=== PATIENT | female | born 1985 | race Caucasian/White ===

== ENCOUNTER 2021-12-25 09:52 | Outpatient (CLI) | payer OTHER, SELFPAY ==
[2021-12-26 13:38] LABS: Strep B DNA Probe POSITIVE (Negative)
== END 2021-12-25 09:53 | disposition home or self-care (01) ==
PROVIDERS: Visit Provider Advanced Practice Midwife
DX: Z34.93 Encounter for supervision of normal pregnancy, unspecified, third trimester (principal); Z3A.36 36 weeks gestation of pregnancy
CPT/HCPCS: 84443; 87081; 87653

== ENCOUNTER 2022-01-15 16:59 | Inpatient (IN) | payer OTHER, SELFPAY ==
[2022-01-15] VITALS (9 sets, daily range): BP systolic 114–134; BP diastolic 74–83; PULSE 18–92; TEMP 36.6; O2SAT 98; BMI 25.0
--- OUTSIDE RECORDS SUMMARY | 2022-01-15 16:40 | XMS_ITS | Clinical Summary ---
:1985 Author Organization [facility] Address [address] [place] [id number] Care Team Providers Name Role Phone Unavailable Primary Care Provider Unavailable Source Comments Patient records contain information from all sites at [facility]. For routine questions regarding patient records, call [phone] during business hours, M-F 8:00 AM - 5:00 PM Central Time. Record requests for emergency care only can be directed to [phone] at any time.[facility] Allergies No known active allergies Medications Medication Sig Dispensed Refills Start Date End Date Status buPROPion XL Take 150 mg by 0 Ac tive (WELLBUTRIN XL) 150 mg mouth. 24 hr tablet clobetasoL (TEMOVATE) Apply topically. 0 Active 0.05 % cream Active Problems No known active problems Immunizations Name Administration Dates Next Due Td (Adult), adsorbed 11/29/2008 Tdap 02/16/2020 Family History Medical History Relation Name Comments Asthma Father Diabetes Father Anxiety disorder Sister Asthma Sister Relation Name Status Comments Father Sister Social History Tobacco Use Types Packs/Day Years Used Date Smoking Tobacco: Never Sex Assigned at Date Recorded Not on file Last Filed Vital Signs Vital Sign Reading Time Taken Comments Blood Pressure 113/82 02/16/2020 6:30 PM CDT Pulse 125 02/16/2020 6:30 PM CDT Temperature 37.1 ??C (98.8 ??F) 02/16/2020 4:18 PM CDT Respiratory Rate 12 02/16/2020 5:35 PM CDT Oxygen Saturation 99% 02/16/2020 6:30 PM CDT Inhaled Oxygen Concentration - - Weight 56.2 kg (124 lb) 02/16/2020 4:51 PM CDT Height 162.6 cm (5' 4) 02/16/2020 4:51 PM CDT Body Mass Index 21.28 02/16/2020 4:51 PM CDT Plan of Treatment Health Maintenance Due Date Last Done Comments HIV Screening 1985 Hepatitis B Vaccines (1 of 3 1984 - 3-dose series) Hepatitis C Screening 1985 COVID-19 Vaccine (#1) 04/14/1985 Cervical Cancer Screening 12/24/2014 12/25/2011 Fasting Lipid Panel 08/24/2017 08/24/2012 Depression Screening (Annual 05/31/2021 PHQ-2) Influenza Vaccine (#1) 2022 DTaP,Tdap,and Td Vaccines (3 02/15/2030 02/16/2020, - Td or Tdap) 07/03/2014, 11/29/2008 Pneumococcal vaccine (0-64 Aged Out No lo nger eligible based years) on patient's age to complete this to [facility] Insurance Payer Benefit Plan / Subscriber ID Effective Phone Address T ype Group Dates PROGRESSIVE PROGRESSIVE [id number] 2020-Pr [phone] [address] emnity esent [id number] [place] [address] [facility] [id number] 2019-Pr [id number] Medicaid HMO HEALTH [place] CARE esent [address] [place] [address] [phone] [id number] (Home) [place] [address] Elaine Chen Third Libertarian Self 1985 [phone] [id number] (Home) [place] [address]
--- OUTSIDE RECORDS SUMMARY | 2022-01-15 16:40 | XMS_ITS | Encounter Summary ---
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 re-evaluation of patient's condi tion, ordering and review of radiographic studies, ordering and revie w of laboratory studies and ordering and performing treatments and i nterventions Williams LorenzoA.-C. PROCEDURE/MINOR SURGICAL OR DERABLES DX Hand Right 3 Views (02/16/2020 5:47 PM CDT) Anatomical Region Laterality Modality Upper Extremity, Hand, Musculoskeletal RST LOS, Right Digital Radiography Musculoskeletal ARZ LOS, Muskuloskeletal FLA LOS Specimen (Source) Anatomical Collection Method Collection Time Re ceived Time Location / / Volume Laterality 02/16/2020 6:06 PM CDT Impressions 02/16/2020 6:08 PM CDT No acute fractures are seen. No opaque foreign bodies are identified. COMPARISON: None. FINDINGS: No acute abnormalities are briana ntified in the right hand. No opaque foreign bodies are seen. No fractures or dislocations are identified. Narrative 02/16/2020 6:08 PM CDT EXAM: DX HAND RIGHT 3 VIEWS Procedure Note oPli Del Angel M.D. - 02/16/2020Format ting of this note might be different from the original. EXAM: DX HAND RIGHT 3 VIEWS IMPRESSION: No acute fractures are seen. No opaque f oreign bodies are identified. COMPARISON: None. FINDINGS: No acute abnormalities are briana ntified in the right hand. No opaque foreign bodies are seen. No fractures or dislocations are identified. Williams Deutsch P.A.-C. IMG DIAGNOSTIC IMAGING PROC EDURES CT Maxillofacial without IV Contrast (02/16/2020 5:20 PM CDT) Anatomical Region Laterality Modality Jaw, Head, Neuroradiology RST LOS, Neuroradiology ARZ N/A Computed Tomography [facility], Neuroradiology [facility] Specimen (Source) Anatomical Collection Method Collection Time Re ceived Time Location / / Volume Laterality 02/16/2020 5:31 PM CDT Impressions 02/16/2020 5:34 PM CDT 1. Displaced nasal fractures. 2. Right periorbital and right facial so ft tissue swelling. Narrative 02/16/2020 5:34 PM CDT EXAM: CT MAXILLOFACIAL WITHOUT IV CONTRAST COMPARISON: None FINDINGS: There are fractures of the jun al bones. There is right periorbital soft tissue swelling and right facial so ft tissue swelling. The paranasal sinuses are within normal limits. No acu te intracranial abnormality is seen. Visualized cervical airway appears junior l. The temporal bones appear normal. Mastoid air cells are well aerated bilat erally. Procedure Note Poli Del Angel M.D. - 02/16/2020Format ting of this note might be different from the original. EXAM: CT MAXILLOFACIAL WITHOUT IV CONTRA ST COMPARISON: None FINDINGS: There are fractures of the jun al bones. There is right periorbital soft tissue swelling and right facial so ft tissue swelling. The paranasal sinuses are within normal limits. No acu te intracranial abnormality is seen. Visualized cervical airway appears junior l. The temporal bones appear normal. Mastoid air cells are well aerated bilat erally. IMPRESSION: 1. Displaced nasal fractures. 2. Right periorbital and right facial so ft tissue swelling. Williams LorenzoARed-Edd. IMG CT PROCEDURES CT Cervical Spine without IV Contrast (02/16/2020 5:19 PM CDT) Anatomical Region Laterality Modality Cervical Spine, Neuroradiology RST [facility], Neuroradiology N/A Computed Tomography ARZ [facility], Neuroradiology [facility] Specimen (Source) Anatomical Collection Method Collection Time Re ceived Time Location / / Volume Laterality 02/16/2020 5:28 PM CDT Impressions 02/16/2020 5:29 PM CDT Normal cervical spine. Narrative 02/16/2020 5:29 PM CDT EXAM: CT CERVICAL SPINE WITHOUT IV CONTRAST COMPARISON: None FINDINGS: The cervical spine is normal. No fractures are seen. There is normal mineralization and alignment. Disc space heights are preserved. No prevertebral swelling is seen. No acute soft tissue a bnormalities are identified. Procedure Note Poli Del Angel M.D. - 02/16/2020Format ting of this note might be different from the original. EXAM: CT CERVICAL SPINE WITHOUT IV CONTR AST COMPARISON: None FINDINGS: The cervical spine is normal. No fractures are seen. There is normal mineralization and alignment. Disc space heights are preserved. No prevertebral swelling is seen. No acute soft tissue a bnormalities are identified. IMPRESSION: Normal cervical spine. Williams E Debbi Steeg P.A.-C. IMG CT PROCEDURES CT Head without IV Contrast (02/16/2020 5:19 PM CDT) Anatomical Region Laterality Modality Head, Neuroradiology RST LOS, Neuroradiology ARZ LOS, N/A Computed Tomography Neuroradiology FLA [facility] Specimen (Source) Anatomical Collection Method Collection Time Re ceived Time Location / / Volume Laterality 02/16/2020 5:24 PM CDT Impressions 02/16/2020 5:28 PM CDT 1. No acute intracranial hemorrhage. 2. Bilateral nasal fractures. 3. Right periorbital and right facial so ft tissue swelling. Narrative 02/16/2020 5:28 PM CDT EXAM: CT HEAD WITHOUT IV CONTRAST COMPARISON: None FINDINGS: No acute intracranial hemorrha ge or mass effect. No abnormalities of brain parenchymal density are identified . There are bilateral nasal fractures. There is right periorbital and right fac ial soft tissue swelling. The paranasal sinuses are within normal limits. Procedure Note Poli Del Angel M.D. - 02/16/2020Format ting of this note might be different from the original. EXAM: CT HEAD WITHOUT IV CONTRAST COMPARISON: None FINDINGS: No acute intracranial hemorrha ge or mass effect. No abnormalities of brain parenchymal density are identified . There are bilateral nasal fractures. There is right periorbital and right fac ial soft tissue swelling. The paranasal sinuses are within normal limits. IMPRESSION: 1. No acute intracranial hemorrhage. 2. Bilateral nasal fractures. 3. Right periorbital and right facial so ft tissue swelling. Williams E Debbi Steeg P.A.-C. IMG CT PROCEDURES (ABNORMAL) Lipase (02/16/2020 4:27 PM CDT) athologist Signature Lipase, P 75 (H) 13 - 60 U/L 02/16/2020 CN[facility] 4:49 PM CDT Specimen Anatomical Collection Method Collection Time Receive d Time (Source) Location / / Volume Laterality Blood (Blood, 02/16/2020 4:27 PM 02/16/20 4:29 Venous) CDT PM CDT Williams SevillaCRed LAB BLOOD ADD-ON Performing Organization Address [facility] Phon e Number [address] [id number] [place] [address] System in [address] (ABNORMAL) Ethanol Level, Serum (02/16/2020 4:27 PM CDT) athologist Signature Ethanol, P 94 (H) <10 mg/dL 02/16/2020 4:49 CNFL PM CDT Specimen Anatomical Collection Method Collection Time Receive d Time (Source) Location / / Volume Laterality Blood (Blood, 02/16/2020 4:27 PM 02/16/20 4:29 Venous) CDT PM CDT Williams SevillaC. LAB BLOOD NON ADD-ON Performing Organization Address City/[facility] Phon e Number [address] [address] [place] [address] System [address] (ABNORMAL) Comprehensive Metabolic Panel (02/16/2020 4:27 PM CDT) athologist Signature Potassium, P 3.9 3.6 - 5.2 02/16/2020 [facility] mmol/L 4:49 PM CDT Sodium, P 143 135 - 145 02/16/2020 [facility] mmol/L 4:49 PM CDT Chloride, P 108 (H) 98 - 107 02/16/2020 [facility] mmol/L 4:49 PM CDT Bicarbonate, P 21 (L) 22 - 29 02/16/2020 [facility] mmol/L 4:49 PM CDT Anion Gap, P 14 7 - 15 02/16/2020 [facility] 4:49 PM CDT BUN (Blood 12 6 - 21 02/16/2020 [facility] Urea mg/dL 4:49 PM CDT Nitrogen), P Creatinine, P 0.97 0.59 - 02/16/2020 [facility] 1.04 mg/dL 4:49 PM CDT eGFR-Black/Afr 88 >=60 02/16/2020 CNFL ican [place] mL/min/BSA 4:49 PM CDT Comment: ----ADDITIONAL INFORMATION---- Estimated GFR calculated using the 2009 CKD_EPI creatinine equation. eGFR Non-Black/ 76 >=60 mL/min/BSA 4:49 PM CDT CNFL Comment: ----ADDITIONAL INFORMATION---- Estimated GFR calculated using the 2009 CKD_EPI creatinine equation. Calcium, Total, P 9.3 8.6 - 10.0 mg/dL 02/16/2020 4:49 PM CDT CNFL Glucose, P 119 70 - 140 mg/dL 02/16/2020 4:49 PM CDT C NFL Protein, Total, P 6.9 6.3 - 7.9 g/dL 02/16/2020 4:49 P M CDT CN[facility] Albumin, P 4.5 3.5 - 5.0 g/dL 02/16/2020 4:49 PM CDT C NFL Aspartate Aminotransferase 33 8 - 43 U/L 02/16/2020 4 :49 PM CDT CNFL (AST), P Alkaline Phosphatase, P 51 35 - 104 U/L 02/16/2020 4: 49 PM CDT CN[facility] Alanine Aminotransferase (ALT), 17 7 - 45 U/L 020 4:49 PM CDT CNFL P Bilirubin, Total, P 0.3 <=1.2 mg/dL 02/16/2020 4:49 PM CDT CNFL Specimen Anatomical Collection Method Collection Time Receive d Time (Source) Location / / Volume Laterality Blood (Blood, 02/16/2020 4:27 PM 02/16/20 20 4:29 Venous) CDT PM CDT Williams Deutsch P.A.-C. LAB BLOOD ADD-ON Performing Organization Address City/State/ZIP Code Phon e Number [facility]- [address] [place] [phone] [place] [address] System in [place] [address] (ABNORMAL) CBC with Differential, Blood (02/16/2020 4:27 PM CDT) [facility] Method Time Signature Hemoglobin 14.0 11.6 - 02/16/2020 CN[facility] 15.0 g/dL 4:34 PM CDT Hematocrit 40.4 35.5 - 02/16/2020 CN[facility] 44.9 % 4:34 PM CDT Erythrocytes 4.45 3.92 - 02/16/2020 CN[facility] 5.13 4:34 PM CDT x10(12)/L MCV 90.8 78.2 - 02/16/2020 CN[facility] 97.9 fL 4:34 PM CDT RBC Distrib Width 12.8 12.2 - 02/16/2020 CN[facility] 16.1 % 4:34 PM CDT Platelet Count 168 157 - 371 02/16/2020 [facility] x10(9)/L 4:34 PM CDT Leukocytes 12.2 (H) 3.4 - 9.6 02/16/2020 CN[facility] x10(9)/L 4:34 PM CDT Neutrophils 10.71 (H) 1.56 - 02/16/2020 CN[facility] 6.45 4:34 PM CDT x10(9)/L Lymphocytes 0.84 (L) 0.95 - 02/16/2020 CN[facility] 3.07 4:34 PM CDT x10(9)/L Monocytes 0.63 0.26 - 02/16/2020 CN[facility] 0.81 4:34 PM CDT x10(9)/L Eosinophils 0.02 (L) 0.03 - 02/16/2020 CN[facility] 0.48 4:34 PM CDT x10(9)/L Basophils 0.03 0.01 - 02/16/2020 CN[facility] 0.08 4:34 PM CDT x10(9)/L Specimen Anatomical Collection Method Collection Time Receive d Time (Source) Location / / Volume Laterality Blood (Blood, 02/16/2020 4:27 PM 02/16/20 20 4:29 Venous) CDT PM CDT Williams Deutsch P.A.-C. LAB BLOOD ADD-ON Performing Organization Address City/State/ZIP Code Phon e Number [facility]- [id number] [place] [phone] [place] [address] System in [place] [id number] [place] [address] documented in this encounter Visit Diagnoses Diagnosis Concussion Loss Of Consciousness Less Th an 30 Minute Initial - Primary Fracture Nose Closed Initial Laceration Hand Without Foreign Body Ini tial Right Contusion Face Initial Alcohol Abuse With Intoxication Unspecif ied (HCC) documented in this encounter Administered Medications Inactive Administered Medications - up to 3 most recent administrations Medication Order MAR Action Action Date Dose Rate Site acetaminophen tablet 1,000 mg Given 02/16/2020 5:50 PM CDT 1,000 mg (TYLENOL) 1,000 mg, oral, Once, On Wed02/16/20 at 1734, For 1 dose bacitracin zinc 500 unit/gram ointment Given 0 6:25 PM CDT 1 application 1 application 1 application, topical, Once, On Wed02/16/20 at 1818, For 1 dose lidocaine-EPINEPHrine 1 %-1:100,000 injection Given 5:18 PM CDT 20 mL 20 mL (XYLOCAINE W/EPI) 20 mL, injection, Once, On Wed02/16/20 at 1710, For 1 dose NaCl 0.9 % bolus 1,000 mL New Bag 02/16/2020 5:16 PM CDT 1,000 mL 1000 mL/hr 1,000 mL, intravenous, at 1,000 mL/hr, Administer over 1 Hours, Once, On Wed02/16/20 at 1626, For 1 dose documented in this encounter Active and Recently Administered Medications Times are shown in CDT. Scheduled Medication Order 02/14/2020 02/15/2020 02/16/2020 acetaminophen tablet 1,000 mg (TYLENOL) (COMPLETED) 1750 (Given - Provider: Canelo Mansfield R.N.) 1,000 mg, oral, Once, On Wed02/16/20 at 1734, For 1 dose bacitracin zinc 500 unit/gram ointment 1 application 1825 (Given - Provider: Canelo Mansfield R.N.) 1 application, topical, Once, On Wed02/16/20 at 1818, For 1 dose ibuprofen tablet 600 mg (ADVIL,MOTRIN) 1750 (Incomplete - Provider: Canelo Mansfield R.N.) 600 mg, oral, Once, Wed02/16/20 at 1734, For 1 dose, Take with food or milk if GI disturbances occur with use. lidocaine-EPINEPHrine 1 %-1:100,000 inje ction 20 mL (XYLOCAINE W/EPI) (COMPLETED) 1718 (Given - Provid er: Canelo Mansfield R.N. - Comment: given by provider) 20 mL, injection, Once, On Wed02/16/20 at 1710, For 1 dose NaCl 0.9 % bolus 1,000 mL (COMPLETED) 171 (New Bag - Provider: Canelo Mansfield R.N.)1815 (Stopped - Provider: Canelo Mansfield R.N.) 1,000 mL, intravenous, at 1,000 mL/hr, A dminister over 1 Hours, Once, On Wed02/16/20 at 1626, For 1 dose documented in this encounter
--- OUTSIDE RECORDS SUMMARY | 2022-01-15 16:40 | XMS_ITS | Encounter Summary ---
:1985 Author Organization [facility] Address [address] [place] [address] Care Team Providers Name Role Phone Unavailable Primary Care Provider Unavailable Encounter Details Date Type Department Care Team Description 08/24/2012 Hospital Encounter [facility] ME Dana Arteaga M.D. Social History Tobacco Use Types Packs/Day Years Used Date Smoking Tobacco: Never Assessed Sex Assigned at Date Recorded Not on file documented as of this encounter Last Filed Vital Signs Vital Sign Reading Time Taken Comments Blood Pressure 90/60 08/24/2012 11:20 AM CDT Pulse 65 08/24/2012 11:20 AM CDT Temperature - - Respiratory Rate 14 08/24/2012 11:20 AM CDT Oxygen Saturation - - Inhaled Oxygen Concentration - - Weight 54.2 kg (119 lb 7.8 oz) 08/24/2012 11:20 AM CDT Height 160 cm (5' 2.99) 08/24/2012 11:20 AM CDT Body Mass Index 21.17 08/24/2012 11:20 AM CDT documented in this encounter Progress Notes Dana Arteaga M.D. - 08/24/2012 11:11 AM CDT [id number] CHIEF COMPLAINT/REASON FOR VISIT This is a new patient. She comes in because she has not had her period for 2 months. HISTORY OF PRESENT ILLNESS She says ordinarily her menstrual cycle is irregular, but the longest she usually goes between periods is about 6 weeks. Her last period was June 17 and that was pretty normal for her, but for the three months prior to that her periods have been heavier than usual. She is also feeling quite fatigued and she is wondering what is going on. She has a history of some thyroid problems. She was on thyroid medication for about 5 months in 2008, but was able to go off that. She has 3 children ages 8, 5, and 1. She has done tests at home and they have been negative. The last one she did was 2 weeks ago. She says ordinarily when she gets she knows right away because she gets nauseous and she not has felt that way now. She is feeling very fatigued. She tends to be constipated and that has been a problem. Sometimes will get some cramping in the left lower abdomen related to the constipation. Her last Pap was last November and it was normal. She is fasting today. She would like to have some blood work done. She has a history of anemia also and has been on iron pills in the past but currently is not taking them. She is on no prescription medications. She takes vitamin supplements. She is otherwise healthy and has no family history for thyroid problems. There is asthma and diabetes in herfamily. She has not had any fevers. She denies any temperature intolerances. She denies any weight ch anges. No skin or hair change either. PHYSICAL EXAMINATION VITAL SIGNS: On exam her blood pressure is 90/60 she appears well. She is in no acute distress. BMI is 31, heart rate 65. HEENT: Head is normocephalic, atraumatic. Pharynx is clear. NECK: Neck is supple without lymphadenopathy. She has no thyroid enlargement. LUNGS: Her lungs are clear. HEART: Heart is regular without murmur. ABDOMEN: Bowel sounds are present. She is somewhat tender in the left lower quadrant. Not tender in the suprapubic area. There is no guarding or rebound. NEUROLOGIC: Her knee jerks are equal bilaterally. SKIN: Warm and dry. IMPRESSION/REPORT/PLAN Fatigue and missed menses, early . PLAN: We will check a test. We will do a CBC, lipid panel, TSH and BMP. She is fasting today. Her test came back positive. I informed her of this. We will still do the rest of the lab work and I will let her know the results. I suggested she get set up with an cattle killer and it would be important to get an ultrasound within the next 2 to 4 weeks I believe for dating purposes. She does have some vitamins at home that she will start taking. Dana Arteaga M.D./renee Electronically Signed By: DANA ARTEAGA MD On: 08/24/2012 02:17 PM Source: [facility] MHSDOLBEYNONRADSYS Document Id: [id number] documented in this encounter Miscellaneous Notes Tishcelltamiko - Dana Arteaga M.D. - 08/24/2012 1:49 PM CDT Results Notification Document Contains Addenda Addendum by MATY ESPARZA on 29 August 2012 13:54:33 CDT mailed results to the patient. Addendum by MATY ESPARZA on 24 August 2012 15:11:11 CDT left message to call back From: DANA ARTEAGA MD To: MATY ESPARZA Sent: 08/24/2012 13:49:12 CDT ! Show up: 08/24/2012 18:49:12 [facility] Subject: Results Notification Actions: Notify patient of results Source: [facility] POWERCHART Document Id: [id number] Electronically signed by Gatito [facility] Cd Reactor Operator Head [id number] at 10/28/2016 11:39 AM CDT Miscellaneous - Dana Arteaga M.D. - 08/24/2012 12:20 PM CDT Results Notification Document Contains Addenda Addendum by MATY ESPARZA on 24 August 2012 15:11:32 CDT left message to call back. From: DANA ARTEAGA MD To: MATY ESPARZA Sent: 08/24/2012 12:20:08 CDT ! Show up: 08/24/2012 17:20:08 [facility] Subject: Results Notification Actions: Notify patient of results Source: [facility] POWERCHART Document Id: [id number] Dana Montes De Oca M.D. - 08/24/2012 12:17 PM CDT Ambulatory Patient Summary [address] [address] Visit Information Name: MARIA ELENA RUIZ [facility] Number: [id number] Current Date: 08/24/2012 12:17:36 Physicians Attending Provider: DANA ARTEAGA MD Primary Care Provider: PCP, JANNYSSBEKAH - CAMPBELL Your Medications Here is a list of your medications. It is important to take your medications as directed. Use a pillbox or chart to help remind you to take your medications. Please let your doctor or nurse know if you have problems taking your medications. Medication/Strength Dose Route Frequency Indications/Special Instructions/Comments Misc Prescription (Misc Prescription) stress supplement Misc Prescription (Misc Prescription) supplements niacin,ca,phosphorus,grape seed extract Attention: If you have any medications at home that are not on this list, DO NOT take them until youcontact your provider for clarification. Your Allergies & Intolerances Substance Reaction Symptoms Category Comments No Known Allergies Drug Your Problem List Problem Status Onset Comments Active 08/24/2012 Your Upcoming Appointments Date Time Location Reason Provider No Appointments found Your Goals/Additional instructions: Source: [facility] POWERCHART Document Id: [id number] Dana Montes De Oca M.D. - 08/24/2012 12:17 PM CDT Ambulatory Depart Summary [id number] [place] [address] Visit Information Name: MARIA ELENA RUIZ [facility] Number: [id number] Visit Date: 08/24/2012 12:17:36 Attending Provider: DANA ARTEAGA MD Primary Care Provider: PCP, UNASSIGNED - [place] MARIA ELENA RUIZ has been given the following list of medications: Your Medications It is important to take your medications as directed. Use a pill box or chart to help remind you to take your medications. Please let your doctor or nurse know if you have problems taking your medications. Medication/Strength Dose Route Frequency Indications/Special Instructions/Comments Misc Prescription (Misc Prescription) stress supplement Misc Prescription (Misc Prescription) supplements niacin,ca,phosphorus,grape seed extract Attention: If you have any medications at home that are not on this list, DO NOT take them until youcontact your provider for clarification. Additional Information: Source: [facility] POWERCHART Document Id: [id number] Miscellaneous - Maty Esparza, L.P.N. - 08/24/2012 11:20 AM CDT Adult Extension Service Specialist Intake/History Adult Extension Service Specialist Intake/History Entered On: 08/24/2012 11:24 CDT Performed On: 08/24/2012 11:20 CDT by MATY ESPARZA Intake Chief Complaint : no period for 2 months home tests all have been negative. also fatigue but has hystory of low iron and platlets and thyroid Peripheral Pulse Rate : 65/min Respiratory Rate : 14/min Systolic Blood Pressure : 90mmHg (LOW) Diastolic Blood Pressure : 60mmHg NIBP Mean : 70mmHg BP Location : Left upper extremity Blood Pressure Cuff Size : Regular SpO2 : 99% Oxygen Therapy : Room air Height : 160cm(Converted to: 5ft 3inch(es), 62.99inch(es)) Actual Weight : 54.2kg(Converted to: 119lb 8oz) Dosing Weight Clinic : 54.20kg Clinic BSA : 1.55 Body Mass Index : 21.17kg/m2 MATY ESPARZA - 08/24/2012 11:20 CDT General Info Information Given By : Patient Languages : Croatian ERIC ESPARZAN - 08/24/2012 11:20 CDT Subjective Pain Symptoms : No ERIC ESPARZAN - 08/24/2012 11:20 CDT Dependent Habits Tobacco Use/Currently Using : No Smoking Status : Never smoker MATY ESPARZA - 08/24/2012 11:20 CDT Tobacco Use Grid Last Use : never ISAIAS MATY - 08/24/2012 11:20 CDT Allergy Allergies (Active) NKA Estimated Onset Date: Unspecified ; Created By: MATY ESPARZA; Reaction Status: Active ; Category: Drug ; Substance: NKA ; Type: Allergy ; Updated By: MATY ESPARZA; Reviewed Date: 08/24/2012 11:17CDT Source: [employer]ART Document Id: [id number] documented in this encounter Plan of Treatment Not on filedocumented as of this encounter Procedures Procedure Name Priority Date/Time Associated Diagnosis Comme nts LIPID PANEL, S Routine 08/24/2012 11:57 AM Result s for this CDT procedure are i n the results section. AUTOMATED Routine 08/24/2012 11:57 AM Results for this DIFFERENTIAL, B CDT procedure ar e in the results section. CBC WITH Routine 08/24/2012 11:57 AM Results for this DIFFERENTIAL, B CDT procedure ar e in the results section. THYROID-STIMULATING Routine 08/24/2012 11:57 AM R esults for this HORMONE-SENSITIVE CDT procedure are in (S-TSH) the results section. BASIC METABOLIC Routine 08/24/2012 11:57 AM Resul ts for this PANEL, S/P CDT procedure are i n the results section. TEST, U Routine 08/24/2012 11:51 AM Res ults for this CDT procedure are i n the results section. documented in this encounter Results (ABNORMAL) Automated Differential (08/24/2012 11:57 AM CDT) [facility] Method Time Signature Neutro % 76.6 42.0 - POWERCHART 77.0 Lymphocytes % 14.1 (L) 23.0 - POWERCHART 44.0 HX [place] % 7.0 2.0 - 18.0 POWERCHART HX Eos % 2.0 1.0 - 5.0 POWERCHART HX Baso % 0.3 0.0 - 1.0 POWERCHART Absolute 5.23 1.70 - POWERCHART Neutrophils 7.00 109L Lymphocytes 0.96 0.90 - POWERCHART 2.90 X109L Monocytes 0.48 0.30 - POWERCHART 0.90 X109L Eosinophils 0.14 0.05 - POWERCHART 0.50 X109L Absolute 0.02 0.00 - POWERCHART Basophil 0.30 X109L Specimen Anatomical Collection Method Collection Time Receive d Time (Source) Location / / Volume Laterality Blood 08/24/2012 11:57 08/24/2012 AM CDT 11:57 AM CDT Dana Arteaga M.D. LAB BLOOD ADD-ON Performing Organization Address City/State/ZIP Code Phon e Number POWERCHART (ABNORMAL) CBC with Differential (08/24/2012 11:57 AM CDT) Analysis Performed At Patho logist Time Signature Leukocytes 6.8 3.4 - 10.5 POWERCHART X109L Erythrocytes 4.33 3.90 - POWERCHART 5.03 [id number] Hemoglobin 12.6 12.0 - POWERCHART 15.5 GDL Hematocrit 38.2 34.9 - POWERCHART 44.5 MCV 88.2 82.0 - POWERCHART 98.0 FL HX RDW 13.4 11.9 - POWERCHART 15.5 Platelet Count 140 (L) 150 - 450 POWERCHART X109L HXDifferential? Auto POWERCHART Specimen (Source) Anatomical Collection Method Collection Time Re ceived Time Location / / Volume Laterality Blood 08/24/2012 11:57 AM CDT Dana Arteaga M.D. LAB BLOOD ADD-ON Performing Organization Address City/State/ZIP Code Phon e Number POWERCHART (ABNORMAL) BMP (Basic Metabolic Panel) (08/24/2012 11:57 AM CDT) P athologist Signature Sodium, S 137.5 135.0 - POWERCHART 145.0 MML Potassium, S 3.9 3.6 - 4.8 POWERCHART MMOLL Chloride, S 103 100 - 108 POWERCHART MMOLL CO2 Total 27.1 23.0 - 29.0 POWERCHART MMOLL Glucose, 87 70 - 99 POWERCHART Fasting, S MGDL BUN (Blood Urea 12 7 - 18 MGDL POWERCHART Nitrogen), S Creatinine, S 0.71 0.60 - 1.30 POWERCHART MGDL Calcium, Total, 9.1 8.5 - 10.1 POWERCHART S MGDL Anion Gap 7 (L) 10 - 20 POWERCHART MMOLL HXeGFR (MDRD) >60 >=60 POWERCHART [id number] Comment: A GFR of <60 mL/min is indicative of chr onic kidney disease. (MDRD calculation valid on patients 18 - 70 years.) eGFR Black/ >60 >=60 [id number] POWERCHART Specimen (Source) Anatomical Collection Method Collection Time Re ceived Time Location / / Volume Laterality Blood 08/24/2012 11:57 AM CDT Dana Arteaga M.D. LAB BLOOD ADD-ON Performing Organization Address City/State/ZIP Code Phon e Number POWERCHART (ABNORMAL) Lipid Panel (08/24/2012 11:57 AM CDT) P athologist Signature Cholesterol, 124 0 - 200 POWERCHART Total MGDL Comment: <200 mg/dL Desirable 200-239 mg/dL Borderline High >239 mg/dL High HX HDL 53 35 - 60 MGDL POWERCHART Comment: > 60 mg/dL Desirable 40 ? 60 mg/dL Low Risk <40 mg/dL Undesirable Triglycerides 44 9 - 150 MGDL POWERCHART Comment: <150 mg/dL Desirable 150-199 mg/dL Borderline High 200-499 mg/dL High > 499 Very High Calculated LDL 62 (L) 100 - 129 MGDL POWERCHART Total Cholesterol/HDL Ratio 2 PO WERCHART Specimen (Source) Anatomical Collection Method Collection Time Re ceived Time Location / / Volume Laterality Blood 08/24/2012 11:57 AM CDT Dana Arteaga M.D. LAB BLOOD ADD-ON Performing Organization Address City/State/ZIP Code Phon e Number POWERCHART Thyroid-Stimulating Hormone-Sensitive (s-TSH) (08/24/2012 11:57 AM CDT) P athologist Signature TSH 2.23 0.30 - 5.00 POWERCHART (Thyrotropin) MCIUML Specimen (Source) Anatomical Collection Method Collection Time Re ceived Time Location / / Volume Laterality Blood 08/24/2012 11:57 AM CDT Dana Arteaga M.D. LAB BLOOD ADD-ON Performing Organization Address City/State/ZIP Code Phon e Number POWERCHART Test, Qualitative, Urine (08/24/2012 11:51 AM CDT) [facility] gist Method Time Signature HXBeta-hCG Positive POWERCHART Qualitative Urine Specimen (Source) Anatomical Collection Method Collection Time Re ceived Time Location / / Volume Laterality Urine 08/24/2012 11:51 AM CDT Dana Arteaga M.D. LAB URINE ORDERABLES Performing Organization Address City/State/ZIP Code Phon e Number POWERCHART documented in this encounter Visit Diagnoses Not on filedocumented in this encounter
--- OUTSIDE RECORDS SUMMARY | 2022-01-15 16:40 | XMS_ITS | Encounter Summary ---
:1985 Author Organization [facility] Address [address] [place] [address] Care Team Providers Name Role Phone Unavailable Primary Care Provider Unavailable Encounter Details Date Type Department Care Team Description 06/06/2012 Hospital Encounter HX NO MAPPING Sergio Rivera P.A.-C., P.A. [address] [place], [place] [phone] (Wo rk) Social History Tobacco Use Types Packs/Day Years Used Date Smoking Tobacco: Never Assessed Sex Assigned at Date Recorded Not on file documented as of this encounter Progress Notes Sergio Rivera P.A.-C. - 06/06/2012 1:45 PM CST [id number] SUBJECTIVE: 26-year-old female presents to Urgent Care today complaining of fever, body aches and vomiting since last night. Rates the pain as 8 out of 10. A little bit sore throat and headache. She has tried gwux-vrx-olfdtep medications with minimal relief. OBJECTIVE: VITAL SIGNS: Noted in Epic. GENERAL: Pleasant female sitting in exam room, no apparent distress, appropriate mood and affect. CARDIAC: Regular rate and rhythm, positive S1, S2, no murmurs, rubs or gallops. LUNGS: Sounds clear to auscultation, no wheezes, rales or rhonchi. SINUSES: Nontender to palpation. THROAT: No posterior erythema, no exudates or lesions. NECK: Supple without any adenopathy. Influenza positive for A. Rapid strep test: negative. ASSESSMENT/PLAN: Influenza A. Treat with Tamiflu twice a day for 5 days, 75 mg. Side effects of the medication explained and understood. Recheck if symptoms worsen or fail to improve. I discuss prevention for the rest of the family members at home as she does has an infant. Nobody is immunocompromised. They are not in our system nor are they with them here today. Unsure of the weight. Therefore her regular safety investigator is in [place]. I asked that she call her safety investigator today indicating that she has been tested positive for influenza and to see if the children need prevention. ANGIE Hobbs/alyeda Source: [facility] Document Id: [id number] Electronically signed by Conversion, [facility] Custodial Laborer [id number] at 10/26/2016 1:53 PM CDT documented in this encounter Miscellaneous Notes Tremaineaneous - Elijah Hills - 06/06/2012 1:45 PM CST [id number] Return to Work Release Date: 06/06/2012 Name: Elaine Watts Birthdate: 1985 The patient was seen at: [facility] IN Urgent Care today Restrictions if any: OFF Work for this week. Sergio Rivera PA-C [facility] [place] Source: [facility] Document Id: [id number] Electronically signed by Conversion, [facility] Custodial Laborer [id number] at 10/26/2016 1:53 PM CDT Vero - Sergio Rivera P.A.-C. - 06/06/2012 1:45 PM CST [id number] 06/08/2012 Elaine Watts [id number] [facility] [id number] Dear Elaine: Thank you for allowing me to participate in your care. Your recent test results were reviewed and listed below. Your results are provided below for your review Throat Culture Results: Negative for bacterial growth As a result, please continue with the treatment plan discussed in the office. Return as discussed orsooner if symptoms worsens or fail to improve. If you have any further questions or concerns, pleasedo not hesitate to contact us. Sincerely, [facility] Roxie Shannon [facility] [address] Source: [facility] Document Id: [id number] Electronically signed by Conversion, [facility] Custodial Laborer [id number] at 10/26/2016 1:53 PM CDT documented in this encounter Plan of Treatment Not on filedocumented as of this encounter Procedures Procedure Name Priority Date/Time Associated Comments Diagnosis HX CULTURE REPORT Routine 06/08/2012 10:24 Result s for this STATUS AM CIGARETTE PAPER TESTER procedure are i n the results section. HX SN - SPEC - Routine 06/08/2012 10:24 Results f or this DESCRIPTION AM CIGARETTE PAPER TESTER procedure are i n the results section. HX CULTURE Routine 06/08/2012 10:24 Results for this AM CIGARETTE PAPER TESTER procedure are i n the results section. HX INFLUENZA B AG Routine 06/06/2012 2:24 PM Resu lts for this CIGARETTE PAPER TESTER procedure are i n the results section. INFLUENZA A H1N1 Routine 06/06/2012 2:24 PM Resul ts for this (2008) CIGARETTE PAPER TESTER procedure are i n the results section. INFLUENZA A/B Routine 06/06/2012 2:24 PM Results for this CIGARETTE PAPER TESTER procedure are i n the results section. HX CULTURE REPORT Routine 06/06/2012 2:15 PM Resu lts for this STATUS CIGARETTE PAPER TESTER procedure are i n the results section. HX SN - SPEC - Routine 06/06/2012 2:15 PM Results for this DESCRIPTION CIGARETTE PAPER TESTER procedure are i n the results section. RAPID STREP A SCREEN Routine 06/06/2012 2:15 PM R esults for this CIGARETTE PAPER TESTER procedure are i n the results section. documented in this encounter Results HX CULTURE REPORT STATUS (06/08/2012 10:24 AM CIGARETTE PAPER TESTER) Analysis Performed At Patho logist Time Signature CULTURE REPORT FINAL [facility] STATUS 06/08/2012 [facility] LAB Specimen (Source) Anatomical Collection Method Collection Time Re ceived Time Location / / Volume Laterality 06/08/2012 10:24 AM CIGARETTE PAPER TESTER Historical Provider LAB HISTORICAL ORDERS Performing Organization Address City/State/ZIP Code Phon e Number [facility] HX CULTURE (06/08/2012 10:24 AM CIGARETTE PAPER TESTER) Patholo gist Method Time Signature Bacterial No Beta [facility] Culture, Streptococcus HEALTH Aerobic [facility] SYSTEM LAB Specimen (Source) Anatomical Collection Method Collection Time Re ceived Time Location / / Volume Laterality 06/08/2012 10:24 AM CIGARETTE PAPER TESTER Historical Provider LAB HISTORICAL ORDERS Performing Organization Address City/State/ZIP Code Phon e Number [facility] HX SN - SPEC - DESCRIPTION (06/08/2012 10:24 AM CIGARETTE PAPER TESTER) P athologist Signature HXSPECIMAN Throat [facility] DESCRIPTION [facility] LAB Specimen (Source) Anatomical Collection Method Collection Time Re ceived Time Location / / Volume Laterality 06/08/2012 10:24 AM CIGARETTE PAPER TESTER Historical Provider LAB HISTORICAL ORDERS Performing Organization Address City/State/ZIP Code Phon e Number [facility] Influenza A/B (06/06/2012 2:24 PM CIGARETTE PAPER TESTER) Patholo gist Method Time Signature Influenza A/B Nasopharyngeal [facility] Ag Spec [facility] LAB Specimen (Source) Anatomical Collection Method Collection Time Re ceived Time Location / / Volume Laterality 06/06/2012 2:24 PM CIGARETTE PAPER TESTER Historical Provider LAB MICROBIOLOGY - GENERAL O RDERABLES Performing Organization Address City/State/ZIP Code Phon e Number [facility] HX INFLUENZA B AG (06/06/2012 2:24 PM CIGARETTE PAPER TESTER) Patholo gist Method Time Signature HXInfluenza B Ag Negative [facility] Specimen (Source) Anatomical Collection Method Collection Time Re ceived Time Location / / Volume Laterality 06/06/2012 2:24 PM CIGARETTE PAPER TESTER Historical Provider LAB HISTORICAL ORDERS Performing Organization Address City/State/ZIP Code Phon e Number [facility] Influenza A H1N1 (2009) (06/06/2012 2:24 PM CIGARETTE PAPER TESTER) Patholo gist Method Time Signature HXInfluenza A Ag Positive [facility] Specimen (Source) Anatomical Collection Method Collection Time Re ceived Time Location / / Volume Laterality 06/06/2012 2:24 PM CIGARETTE PAPER TESTER Historical Provider LAB MICROBIOLOGY - GENERAL O RDERABLES Performing Organization Address City/State/ZIP Code Phon e Number [facility] HX CULTURE REPORT STATUS (06/06/2012 2:15 PM CIGARETTE PAPER TESTER) Analysis Performed At Patho logist Time Signature CULTURE REPORT FINAL [facility] STATUS 06/06/2012 [facility] LAB Specimen (Source) Anatomical Collection Method Collection Time Re ceived Time Location / / Volume Laterality 06/06/2012 2:15 PM CIGARETTE PAPER TESTER Historical Provider LAB HISTORICAL ORDERS Performing Organization Address City/[facility]/ZIP Code Phon e Number [facility] Rapid Strep A Screen (06/06/2012 2:15 PM CIGARETTE PAPER TESTER) Specimen (Source) Anatomical Collection Method Collection Time Re ceived Time Location / / Volume Laterality 06/06/2012 2:15 PM CIGARETTE PAPER TESTER Narrative [facility] - 07/31/19 14 9:49 PM CIGARETTE PAPER TESTER NEGATIVE: No Group A streptococcal antigen detected by immunoassay, await culture report. Historical Provider LAB MICROBIOLOGY - GENERAL O RDERABLES Performing Organization Address City/[facility]/ZIP Code Phon e Number [facility] HX SN - SPEC - DESCRIPTION (06/06/2012 2:15 PM CIGARETTE PAPER TESTER) P athologist Signature HXSPECIMAN Throat [facility] Specimen (Source) Anatomical Collection Method Collection Time Re ceived Time Location / / Volume Laterality 06/06/2012 2:15 PM CIGARETTE PAPER TESTER Historical Provider LAB HISTORICAL ORDERS Performing Organization Address City/[facility]/ZIP Code Phon e Number [facility] documented in this encounter Visit Diagnoses Not on filedocumented in this encounter
--- OUTSIDE RECORDS SUMMARY | 2022-01-15 16:40 | XMS_ITS | Encounter Summary ---
:1985 Author Organization [facility] Address [address] [place] [address] Care Team Providers Name Role Phone Unavailable Primary Care Provider Unavailable Encounter Details Date Type Department Care Team Description 02/20/2020 Clinical Communication Department of No Contact, Pcp Orthopedic Surgery in [address] [address] Social History Tobacco Use Types Packs/Day Years Used Date Smoking Tobacco: Never Sex Assigned at Date Recorded Not on file documented as of this encounter Miscellaneous Notes Telephone Encounter - Pamela Dawson M - 02/20/2020 2:32 PM CDT Francisco Vazquezssica Tamanna Chen, Williams Yen, P.A.-C.has put in a request for you to schedule with ENT, at your earliest convenience. To secure an appointment, please respond with your appointment time preferences (e.g. day of week, time of day, etc.) that would be close to the expected date that was requested. You can also reach us at your clinics appointment line if you would prefer to schedule this over the phone between 7 am-6 pm, Wednesday-Wednesday. [place]: [phone] [place]: [phone] [place]: [phone] [place]: [phone] [place]: [phone] [place]: [phone] [facility]: [phone] [place], [place], or [place] clinics: [phone] [place]:[phone] [place]: [phone] Thank you for trusting your health care to [facility]. documented in this encounter Plan of Treatment Not on filedocumented as of this encounter Visit Diagnoses Not on filedocumented in this encounter
--- OUTSIDE RECORDS SUMMARY | 2022-01-15 16:40 | XMS_ITS | Encounter Summary ---
:[address] [facility] Address [address] [place] [address] Care Team Providers Name Role Phone Unavailable Primary Care Provider Unavailable Encounter Details Date Type Department Care Team Description 01/22/2010 Hospital Encounter HX [facility] INPT/OBSRV Gianfranco Courtney PRedAZayda [address] [place] [address] (Wo rk) Social History Tobacco Use Types Packs/Day Years Used Date Smoking Tobacco: Never Assessed Sex Assigned at Date Recorded Not on file documented as of this encounter Plan of Treatment Not on filedocumented as of this encounter Visit Diagnoses Not on filedocumented in this encounter
--- OUTSIDE RECORDS SUMMARY | 2022-01-15 16:41 | XMS_ITS | Encounter Summary ---
:1985 Author Organization [facility] Address [address] [place] [address] Care Team Providers Name Role Phone Marylou Bermudez MD Primary Care Provider Reason for Visit Reason Comments Procedure cyst on chin for at least a year Encounter Details Date Type Department Care Team Description 02/13/2020 Office Visit Grahn Elijah Guy MD [address] [facility] [address] [place] [address] Skin nodule (Primary [address] Marylou Bermudez MD [address] [place] [address] Dx) [place] [address] Social History Tobacco Use Types Packs/Day Years Used Date Never Smoker Smokeless Tobacco: Current User Chew Alcohol Use Standard Drinks/Week Comments Yes 0 (1 standard drink = 0.6 oz pure alcoho l) 1 Alcohol Habits Answer Date Recorded How often do you have a drink containing alcohol? Not asked How many drinks containing alcohol do you have on a typical Not asked day when you are drinking? How often do you have six or more drinks on one occasion? No t asked Comment: 1 02/13/2020 Sex Assigned at Date Recorded Not on file documented as of this encounter Last Filed Vital Signs Vital Sign Reading Time Taken Comments Blood Pressure 100/66 02/13/2020 3:41 PM CDT Pulse 76 02/13/2020 3:41 PM CDT Temperature 37 ??C (98.6 ??F) 02/13/2020 3:41 PM CDT Respiratory Rate 24 02/13/2020 3:41 PM CDT Oxygen Saturation - - Inhaled Oxygen Concentration - - Weight 56.3 kg (124 lb 1.6 oz) 02/13/2020 3:41 PM CDT Height 162.6 cm (5' 4) 02/13/2020 3:41 PM CDT Body Mass Index 21.3 02/13/2020 3:41 PM CDT documented in this encounter Progress Notes Marylou Bermudez MD - 02/13/2020 3:40 PM CDT New Patient Visit Subjective Patient ID: Elaine Watts is a 34 y.o. female. HPI the patient is here today for evaluation and removal of a nodule on her chin. Because we have not seen her previously we did get a brief history on her She moved from [place] to [place] in 2009 and currently lives just outside of [place] with her and family. 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 Review of Systems Objective Physical Exam she is alert she appears comfortable her vital signs show blood pressure 100/66 pulse is 76 temp 98.6 On the right side of her chin there is a nodule approximately 1/2 cm in size that is mobile and not tender there is no outlet to the skin so does not appear to be a sebaceous type of cyst it does not hurt is not tender and she has had it for approximately 1 year but get a little bit larger last 6 months and she wished to have it removed. We did discuss with her that because of this being located on the facial area and the lower part of her chin that we did's suggest that she consider being referred to plastic surgeon for the best possible procedure with the least amount of possible scarring. However she was not concerned that much about scarring she had a small scar previous on the bottom of her chin and as such she was fine with us doing the procedure. Therefore after consent was signed we took her back to the treatment room. Assessment/Plan Diagnoses and all orders for this visit: Skin nodule - lidocaine (XYLOCAINE) 2 % injection 100 mg Procedures we first positioned her on the procedure table with her head down just a little bit with her chin up. Again the nodules at the lower part of the chin and is quite mobile though seems to be maybe a little bit attached but again fairly mobile. We first prepped the area with triple prep of Betadine We then anesthetized with a total of about 3 cc of Novocain. She was then sterilely draped and once anesthetic effect took place and under sterile condition we first made a small incision approximately1 cm in size and dissected this down through the subcutaneous tissues. At this juncture we are able to have my nurse who is assisting me put pressure on the lump itself such that we could start to see it emerging from the subcutaneous tissue. We next started to dissect around the surrounding tissue to try to expose the nodule little bit morethoroughly and then in the process it actually ruptured there was some fluid in the cyst it was a sterile type of slightly cloudy fluid but was not sebaceous in nature. Once had ruptured the whole cystcollapsed and was more difficult to actually grasp. We took a mosquito and grabbed onto the remaining part of the nodule itself. Unfortunately it appeared to be adhered to the muscular layer beneath it was difficult to actually get it to the surface of the wound itself and in the process of trying to dissected off the subcutaneous tissue the skin layerthere became a little skin tear above the incisional site. We were finally able to dissect out a portion of the cystlike structure and upon palpation after wasremoved there was no apparent nodule left that we could palpate in fact there was a little bit of space left as the cyst had been removed. Again this is more of a cyst or fluid-filled sac as compared to a hard nodule and it made it more difficult to removed. There is no biopsy that was felt to be needed We then closed the original incisional site plus the skin tear issues just above the incision site with 5 sutures of 5-0 Ethilon. Antibiotic ointment applied Band-Aid applied wound care instructions given and patient will return in 7 days for suture removal. 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
--- OUTSIDE RECORDS SUMMARY | 2022-01-15 16:41 | XMS_ITS | Clinical Summary ---
:1985 Author Organization [facility] Address [address] [place] [address] Care Team Providers Name Role Phone Marylou Bermudez MD Primary Care Provider Allergies No known active allergies Medications Medication Sig Dispensed Refills Start Date End Date Status buPROPion XL Take 150 mg by mouth 0 Active (WELLBUTRIN XL) 150 1 (one) time each MG 24 hr tablet day Do not crush, chew, or split. clobetasol Apply 1 application 0 Active (TEMOVATE) 0.05 % topically 2 (two) cream times a day Hospital, Clinic, or Ordered Dose Route Frequency Start Date End D ate Status Other Facility Administered Medication lidocaine (XYLOCAINE) 100 mg INFILTRATION Once 02/14/2020 Active 2 % injection 100 mgIndications: Skin nodule Immunizations Name Administration Dates Next Due Td 11/29/2008 Tdap 07/03/2014 Family History Relation Status Comments Brother 1 Alive Brother 2 Father Alive Mother Alive Sister Alive Social History Tobacco Use Types Packs/Day Years [...] Mass Index 21.3 02/13/2020 3:41 PM CDT Plan of Treatment Health Maintenance Due Date Last Done Comments Pap Smear 1985 COVID-19 Vaccine (#1) 04/14/1985 [facility] Pneumococcal Vaccine: 65+ 2049 Years (1 - PCV) HPV Vaccines Aged Out No longer eligib le based on patient's age to complete this topic [facility] Pneumococcal Vaccine: <64 Aged Out No longer eligible based on patient's age to complete this topic Insurance Payer Benefit Plan / Subscriber ID Effective Dates Phone Addre ss Type Group [facility] [id number] 2019-Prese [address] 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
[2022-01-15 19:00] LABS: SARS PCR* Negative SARS-CoV-2 (Negative)
--- NOTE | 2022-01-15 19:23 | PM.OBPRCVD ---
Documented by User: Carina Pinedo CNM 01/15/22 19:59 Procedure Delivery date: 01/15/22 Procedure Done: Global Events: AMA Intrapartal Events: Precipitous Labor <3 Hrs and Other (Water ) Delivery monitor: external FHT (Intermittent Doppler) Route of delivery: Laceration description: Periurethral - 1st Degree ((bilateral) Not bleeding, not repaired) Estimated blood loss (mL): 300 Anesthesia type: Nitrous Oxide Disposition: floor Narrative: Patient is a 36 year-old G5 now ?P5 admitted on 01/15/2022 at 39 Weeks, 4 Days gestation for SROM. ?Cervical exam on admission was 10 cm/100 % effaced/+1 station with membranes ruptured in vertex presentation.? SROM? occurred at 1530 with clear fluid. Labor Analgesia:? Nitrous Oxide Pitocin:? ? No, PP only for AMTSL Labor onset:? 01/15/2022 1530 Complete: 01/15/2022 1700 Pushing:? 1809 heart tones during second stage were: Reassuring, intermittent Doppler CNM continued at bedside while Elaine labored in the tub. Large amount of back pain with labor, positioning and counter pressure for comfort measures. Partner Burt supportive at tubside. Quickly progressed to pushing spontaneously. Difficulty dealing with back pain while pushing, nitrous initiated. Repositioned to facilitate pushing. At 1832 a viable female infant delivered in vertex OA presentation over intact perineum via spontaneous vaginal delivery in water tub. ? was placed on maternal chest. ?Cord was clamped and cut after a 5+ minute delay.? Nose and mouth were bulb suctioned.? Infant weight pending. ? 8 at 1 minute and 9 at 5 minutes. ?Shoulder dystocia: no. ?Nuchal cord: x1, delivered through.. Placenta delivered spontaneously and complete at 1848 with a 3 vessel cord. Mother and were stable after delivery. Lacerations:? Bilateral Periurethral lacerations, not bleeding, not repaired Blood loss: 300 mL. Blood loss measurement type:? [EBL] Sponge and needles counts are correct. Infant Infant Gender: Female presentation: vertex Placental Delivery Description: Spontaneous Cord Description: 3 Vessels and Nuchal Cord (x1) OB Vag Delivery Procedures Additional Procedures ECV: No Cook Catheter Insertion: No NST: No D&C: No Laceration Repair: No Tubal Ligation : No Other: No Documented by User: Elaine Oneal CNM 01/15/22 20:27 Procedure Narrative: Patient is a 36 year-old G5 now ?P5 admitted on 01/15/2022 at 39 Weeks, 4 Days gestation for SROM. ?Cervical exam on admission was 10 cm/100 % effaced/+1 station with membranes ruptured in vertex presentation.? SROM? occurred at 1530 with clear fluid. Labor Analgesia:? Nitrous Oxide Pitocin:? ? No, PP only for AMTSL Labor onset:? 01/15/2022 1530 Complete: 01/15/2022 1700 Pushing:? 1809 heart tones during second stage were: Reassuring, intermittent Doppler CNM continued at bedside while Elaine labored in the tub. Large amount of back pain with labor, positioning and counter pressure for comfort measures. Partner Burt supportive at tubside. Quickly progressed to pushing spontaneously. Difficulty dealing with back pain while pushing, nitrous initiated. Repositioned to facilitate pushing. At 1832 a viable female delivered in vertex OA presentation over intact perineum via spontaneous vaginal delivery in water tub. ? was placed on maternal chest. ?Cord was clamped and cut after a 5+ minute delay.? Nose and mouth were bulb suctioned.? Infant weight pending. ? 8 at 1 minute and 9 at 5 minutes. ?Shoulder dystocia: no. ?Nuchal cord: x1, delivered through.. Placenta delivered spontaneously and complete at 1848 with a 3 vessel cord. Mother and infant were stable after delivery. Lacerations:? Bilateral Periurethral lacerations, not bleeding, not repaired Blood loss: 300 mL. Blood loss measurement type:? EBL Sponge and needles counts are correct.
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
[2022-01-15 23:29] LABS: Basophils Percent Auto 0.3 % (0.0-3.0); Eosinophils Percent Auto 0.2 % (0.0-7.0); Hematocrit 32.1 % (33.0-51.0); Hemoglobin* 10.3 gm/dL (12.0-16.0); Lymphocytes Percent Auto 7.5 % (20-44); Mean Corpuscular HGB Conc 32 gm/dL (32-36); Mean Corpuscular Hemoglobin 28 pg (26-34); Mean Corpuscular Volume 88 fL (80-100); Monocytes Percent Auto 7.7 % (0.0-11.0); Neutrophils Percent Auto 83.5 % (42.0-72.0); Platelet Count* 113 K/uL (140-440); RDW Coefficient of Variation % 14.1 % (11.5-15.5); Red Blood Count 3.67 m/uL (4.00-5.20); Slide Review Reflex No; White Blood Count* 13.21 K/uL (4.50-11.00)
[2022-01-16 03:16] VITALS: BP 109/67; PULSE 74; RESP 16; TEMP 36.8; O2SAT 96
[2022-01-16 05:00] VITALS: BP 118/72; PULSE 69; RESP 16; TEMP 37.1; O2SAT 95
[2022-01-16 07:26] LABS: Basophils Percent Auto 0.5 % (0.0-3.0); Eosinophils Percent Auto 0.4 % (0.0-7.0); Hematocrit 31.5 % (33.0-51.0); Hemoglobin* 10.2 gm/dL (12.0-16.0); Immature Granulocytes Abs Auto 0.03 K/uL (0.00-0.30); Lymphocytes Percent Auto 14.8 % (20-44); Mean Corpuscular HGB Conc 32 gm/dL (32-36); Mean Corpuscular Hemoglobin 28 pg (26-34); Mean Corpuscular Volume 87 fL (80-100); Monocytes Percent Auto 7.1 % (0.0-11.0); Platelet Count* 117 K/uL (140-440); RDW Coefficient of Variation % 13.9 % (11.5-15.5); Red Blood Count 3.62 m/uL (4.00-5.20); White Blood Count* 12.43 K/uL (4.50-11.00)
[2022-01-16 07:27] LABS: Slide Review Reflex No
--- NOTE | 2022-01-16 08:25 | P.DS_ITS ---
DS: Providers Provider Date Seen: 01/16/22 Date of admission: 01/15/22 16:59 Primary care physician: Not a Local Provider Admitting Clinician: Elaine Oneal CNM Attending Physician on discharge: Elaine Oneal CNM DS: Diagnosis Discharge Diagnosis (1) care following vaginal delivery: Status: Acute Exam Const: Vital Signs, click to edit/add: Vital Signs - 24 hr 01/15/22 16:50 01/15/22 18:52 01/15/22 18:52 Temperature Pulse Rate 80 92 Pulse Rate [Pulse Oximeter] Respiratory Rate Blood Pressure 119/78 120/75 Blood Pressure [Le ft Arm] Pulse Oximetry 98 [facility] 19[facility]08 01/15/22 19:08 01/15/22 19:23 Temperature Pulse Rate 87 Pulse Rate [Pulse Oximeter] Respiratory Rate Blood Pressure 121/78 124/75 Blood Pressure [Le ft Arm] Pulse Oximetry [facility] 01/[facility]/22 19:23 01/15/22 19:38 01/15/22 19:38 Temperature Pulse Rate 89 77 Pulse Rate [Pulse Oximeter] Respiratory Rate Blood Pressure 120/77 Blood Pressure [Le ft Arm] Pulse Oximetry [facility] 01/15/22 19:57 01/15/22 19:57 01/15/22 20:08 Temperature Pulse Rate 85 Pulse Rate [Pulse Oximeter] Respiratory Rate Blood Pressure 134/83 124/76 Blood Pressure [Le ft Arm] Pulse Oximetry [facility] 01/[facility]/22 20:08 01/15/22 20:23 01/15/22 20:23 Temperature Pulse Rate 71 84 Pulse Rate [Pulse Oximeter] Respiratory Rate Blood Pressure 114/75 Blood Pressure [Le ft Arm] Pulse Oximetry [facility] 01/15/22 20:38 01/15/22 20:38 01/15/22 16:50 Temperature 97.8 F Pulse Rate 75 Pulse Rate [Pulse Oximeter] Respiratory Rate Blood Pressure 115/74 Blood Pressure [Le ft Arm] Pulse Oximetry [facility] 01/16/22 03:16 01/16/22 05:00 Temperature 98.3 F 98.8 F Pulse Rate Pulse Rate [Pulse Oximeter] 74 69 Respiratory Rate 16 16 Blood Pressure Blood Pressure [Le ft Arm] 109/67 118/72 Pulse Oximetry 96 95 Oxygen Delivery Me thod Room Air Room Air Documenting provider has reviewed patient's vital signs: yes Common normals: no apparent distress, average body habitus, oriented x3, no limitations, healthy appearing, alert and well nourished General appearance: cooperative HENMT: Common normals: normocephalic, hearing grossly normal bilaterally, external ears normal and external nose normal Head and scalp: normocephalic Face and sinus: normal facial exam Nose: external nose normal External ear: external ears normal Eye: General eye: normal appearance of both eyes Neck & C-Spine: Common normals: full ROM, supple and no JVD General: normal visual inspection Resp: Common normals: normal respiratory effort, no retractions, no use of accessory muscles and clear to auscultation bilaterally Auscultation: clear to auscultation bilaterally Cardio: Common normals: no JVD, regular rate, regular rhythm, S1 normal heart sound, S2 normal heart sound, no gallops, no clicks, no murmurs and no rub Rate: regular rate Rhythm: regular rhythm Heart sounds: S1 normal and S2 normal GI: Common normals: soft to palpation and non-tender Palpation: soft : Uterus: U/2 and firm Lochia: small Extremity: Common normals: full ROM Neuro: Common normals: oriented x3 Sensorium/orientation: alert Psych: Common normals: mental status grossly normal and thought process normal Thought process: normal thought process OB - DS: Summary Hospital Course Hospital Course: The patient is a 36 year old G 5 P 5 at 39.4 weeks gestation that was admitted to the Center on 01/15/22 for SROM and active labor. She had an unc omplicated vaginal delivery. She delivered a viable female . She is breast feeding and states that this is going well. The patient feels well.? Her pain is well controlled with current medications.? She has no new complaints.? Urinary output is adequate and she is voiding without difficulty.? Has a good appetite, is tolerating a general diet, is passing flatus, and has not yet had a bowel mo vement.? Has?small amount of rubra lochia.? She is ambulating well.? the patient has done well. Day 1:? Vaginal Delivery at 39 and 4/7 weeks.? ?? Complications:? none? 36 year old on day 1.? Patient has no complaints? No active bleeding?? Doing well? Discharge Medication Orders:? No New Medication Orders?? She is requesting discharge home.? Peripartum Data delivery method: Vaginal Laceration description: Perineal - 1st Degree (without repair) Episiotomy description: None complications: none Sims Infant Gender: Female Infant Discharge Plan: Home Status at Discharge Functional status at discharge: independent ambulation Overall status at discharge: patient is progressing back to baseline Time Spent with Patient Time attestation: Total time spent providing and/or coordinating discharge services: Discharge Plan Discharge Disposition: Home, Self-Care Date of Admission: 01/15/22 16:59 Primary Care Provider: Provider,Not a Local Condition: Stable Anticipated Discharge Date/Time: 01/16/22 20:30 Discharge Medications: Continued bupropion HCl [Wellbutrin XL] 150 mg tablet extended release 24 hr 150 mg PO QAM Multi-DHA(with vit K) 27 mg iron-800 mcg-260 mg capsule PO QDAY clobetasol propionate 0.05 % topical .hs PRN Discharge Orders: Discharge Order (Routine); Ordered 01/16/22 Ordered By: Dorita Bustillo Patient Education: OB Vaginal/Breast Feeding Activity Restrictions/Additional Instructions: Discharge instructions were reviewed with the patient including signs and symptoms of infection and home going medications.? Use Ibuprofen and Tylenol as needed for pain. Take a stool softener as needed for constipation. Off Work or School for 6 weeks.? ?? Symptoms to report to doctor:? -Bleeding that saturates more than one pad per hour? -Passing clots larger than the size of a golf ball? -Pain not relieved by prescribed medication? -Fever above 100.4 degrees Fahrenheit? -A foul vaginal odor? -Difficulty in emotions, mood and functions? -Thoughts of hurting yourself and/or ? -Painful, reddened area in your breast? -Any drainage, redness or tenderness in your IV/epidural site? -Severe headache that doesn't improve after taking medications? -Changes in vision, including temporary loss of vision, blurred vision, and/or light sensitivity? -Upper abdominal pain (usually under ribs on the right side)? -Decrease in urination or painful, frequent urinating? -Chest pain? -Shortness of breath? -Tenderness or pain with redness and/swelling in the calf(s) of your leg? ?? Follow Up in clinic in 2 and 6 weeks.? ?? consultation services are available to all mothers and babies for the first year after delivery.? To make an appointment, please call [phone].? Activity Level: No Restrictions and Activity as Tolerated Discharge Diet: Regular Follow Up Appointments: Provider,Not a Local [Primary Care Provider] - Forms: MyHealth Info Instructions
[2022-01-16 08:45] VITALS: BP 105/70; PULSE 85; RESP 16; TEMP 36.9; O2SAT 96
[2022-01-16] MEDS: DOCUSATE SODIUM 100 MG CAPSULE PO (09:02)
[2022-01-16 13:17] VITALS: BP 103/67; PULSE 85; RESP 16; TEMP 36.9
[2022-01-16 17:00] VITALS: BP 114/73; PULSE 88; RESP 16; TEMP 36.5; O2SAT 96
== END 2022-01-16 20:43 | disposition home or self-care (01) | DRG 560 ==
LOC: OB OUT 17:00 → OB 17:00
PROVIDERS: Admitting Provider Advanced Practice Midwife; Visit Provider Advanced Practice Midwife
DX: O99.824 Streptococcus B carrier state complicating childbirth (principal); O70.0 First degree perineal laceration during delivery; O99.344 Other mental disorders complicating childbirth; F41.8 Other specified anxiety disorders; O99.284 Endocrine, nutritional and metabolic diseases complicating childbirth; E03.9 Hypothyroidism, unspecified; Z86.32 Personal history of gestational diabetes; Z3A.39 39 weeks gestation of pregnancy; Z37.0 Single live birth
CPT/HCPCS: 36415; 85025; 87635; A9270

== ENCOUNTER 2022-01-21 10:59 | Outpatient (CLI) | payer OTHER, SELFPAY ==
--- OUTSIDE RECORDS SUMMARY | 2022-01-21 11:01 | XMS_ITS | Encounter Summary ---
:1985 Author Organization [facility] Address [address] [place] [address] Care Team Providers Name Role Phone Unavailable Primary Care Provider Unavailable Encounter Details Date Type Department Care Team Description 01/22/2010 Hospital En[facility] IN[facility]OBSRV Gianfranco Courtney PRedAZayda [address] [place] [address] (Wo rk) Social History Tobacco Use Types Packs/Day Years Used Date Smoking Tobacco: Never Assessed Sex Assigned at Date Recorded Not on file documented as of this encounter Plan of Treatment Not on filedocumented as of this encounter Visit Diagnoses Not on filedocumented in this encounter
--- OUTSIDE RECORDS SUMMARY | 2022-01-21 11:01 | XMS_ITS | Encounter Summary ---
:[address] [facility] Address [address] [place] [address] Care Team Providers Name Role Phone Unavailable Primary Care Provider Unavailable Encounter Details Date Type Department Care Team Description 02/20/2020 Clinical Communication Department of No Contact, Pcp Orthopedic Surgery in [address] [address] Social History Tobacco Use Types [...] the phone between 7 am-6 pm, Wednesday-Wednesday. [place]: [phone] [place]: [phone] [place]: [phone] [place]: [phone] [place]: [phone] [place]: [phone] [facility]: [phone] [place], [place], or [place] clinics: [phone] [place]:[phone] [place]: [phone] Thank you for trusting your health care to [facility]. documented in this encounter Plan of Treatment Not on filedocumented as of this encounter Visit Diagnoses Not on filedocumented in this encounter
--- OUTSIDE RECORDS SUMMARY | 2022-01-21 11:01 | XMS_ITS | Clinical Summary ---
:1985 Author Organization [facility] Address [address] [place] [id number] Care Team Providers Name Role Phone Unavailable Primary Care Provider Unavailable Source Comments Patient records contain information from all sites at [facility]. For routine questions regarding patient records, call [phone] during business hours, M-F 8:00 AM - 5:00 PM Central Time. Record requests for emergency care only can be directed to [phone] at any time.[facility] Allergies No known active allergies Medications Medication [...] on patient's age to complete this to [facility] Insurance Payer Benefit Plan / Subscriber ID Effective Phone Address T ype Group Dates PROGRESSIVE PROGRESSIVE [id number] 2020-Pr [phone] [address] emnity esent [id number] [place] [address] [facility] [id number] 2019-Pr [address] Medicaid HMO HEALTH [place] CARE esent [address] [place] [address] [phone] [id number] [address] (Home) [place] [address] Elaine Chen Third Libertarian Self 1985 [phone] [id number] [address] (Home) [place] [address]
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
--- OUTSIDE RECORDS SUMMARY | 2022-01-21 11:01 | XMS_ITS | Encounter Summary ---
:1985 Author Organization [facility] Address [address] [place] [address] Care Team Providers Name Role Phone Unavailable Primary Care Provider Unavailable Encounter Details Date Type Department Care Team Description 06/06/2012 Hospital Encounter HX NO MAPPING Sergio Rivera P.A.-C., P.A. [address] [place], [place] [address] (Wo rk) Social History Tobacco Use Types Packs/Day Years Used Date Smoking Tobacco: Never Assessed Sex Assigned at Date Recorded Not on file documented as of this encounter Progress Notes Sergio Rivear P.A.-C. - 06/06/2012 1:45 PM CST [id number] SUBJECTIVE: 26-year-old female presents to Urgent Care today complaining of fever, body aches and vomiting since last night. Rates the pain as 8 out of 10. A little bit sore throat and headache. She has tried zdjm-mcw-[id number] medications with minimal relief. OBJECTIVE: VITAL SIGNS: [...] Unsure of the weight. 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 I asked that she call her technical support manager today indicating that she has been tested positive for influenza and to see if the children need prevention. ANGIE Hobbs/aleyda Source: [facility] Document Id: [id number] Electronically signed by Conversion, [facility] Tracing Lathe Set Up Operator [id number] at 10/26/2016 1:53 PM CDT documented in this encounter Miscellaneous Notes Tremaineaneous - Elijah Hills - 06/06/2012 1:45 PM CST [id number] Return to Work Release Date: 06/06/2012 Name: Elaine Watts Birthdate: 1985 The patient was seen at: [facility] IN Urgent Care today Restrictions if any: OFF Work for this week. Sergio Rivera PA-C [facility] [place] Source: [facility] Document Id: [id number] Electronically signed by Conversion, [facility] Tracing Lathe Set Up Operator [id number] at 10/26/2016 1:53 PM CDT Vero - Sergio Rivera P.A.-C. - 06/06/2012 1:45 PM CST [id number] 06/08/2012 Elaine Watts [id number] [facility] [address] Dear Elaine: Thank you for allowing me [...] pleasedo not hesitate to contact us. Sincerely, [facility] Roxie Shannon [facility] [address] Source: [facility] Document Id: [id number] Electronically signed by Conversion, [facility] Tracing Lathe Set Up Operator [id number] at 10/26/2016 1:53 PM CDT documented in this encounter Plan of Treatment Not on filedocumented as of this encounter Procedures Procedure Name Priority Date/Time Associated Comments Diagnosis HX CULTURE REPORT Routine 06/08/2012 10:24 Result s for this STATUS AM BI CONSULTANT procedure are i n the results section. HX SN - SPEC - Routine 06/08/2012 10:24 Results f or this DESCRIPTION AM BI CONSULTANT procedure are i n the results section. HX CULTURE Routine 06/08/2012 10:24 Results for this AM BI CONSULTANT procedure are i n the results section. HX INFLUENZA B AG Routine 06/06/2012 2:24 PM Resu lts for this BI CONSULTANT procedure are i n the results section. INFLUENZA A H1N1 Routine 06/06/2012 2:24 PM Resul ts for this (2008) BI CONSULTANT procedure are i n the results section. INFLUENZA A/B Routine 06/06/2012 2:24 PM Results for this BI CONSULTANT procedure are i n the results section. HX CULTURE REPORT Routine 06/06/2012 2:15 PM Resu lts for this STATUS BI CONSULTANT procedure are i n the results section. HX SN - SPEC - Routine 06/06/2012 2:15 PM Results for this DESCRIPTION BI CONSULTANT procedure are i n the results section. RAPID STREP A SCREEN Routine 06/06/2012 2:15 PM R esults for this BI CONSULTANT procedure are i n the results section. documented in this encounter Results HX CULTURE REPORT STATUS (06/08/2012 10:24 AM BI CONSULTANT) Analysis Performed At Patho logist Time Signature CULTURE REPORT FINAL [facility] STATUS 06/08/2012 [facility] Specimen (Source) Anatomical Collection Method Collection Time Re ceived Time Location / / Volume Laterality 06/08/2012 10:24 AM BI CONSULTANT Historical Provider LAB HISTORICAL ORDERS Performing Organization Address City/State/ZIP Code Phon e Number [facility] HX CULTURE (06/08/2012 10:24 AM BI CONSULTANT) Patholo gist Method Time Signature Bacterial No Beta [facility] Culture, Streptococcus [facility] Specimen (Source) Anatomical Collection Method Collection Time Re ceived Time Location / / Volume Laterality 06/08/2012 10:24 AM BI CONSULTANT Historical Provider LAB HISTORICAL ORDERS Performing Organization Address City/State/ZIP Code Phon e Number [facility] HX SN - SPEC - DESCRIPTION (06/08/2012 10:24 AM BI CONSULTANT) P athologist Signature HXSPECIMAN Throat [facility] DESCRIPTION [facility] Specimen (Source) Anatomical Collection Method Collection Time Re ceived Time Location / / Volume Laterality 06/08/2012 10:24 AM BI CONSULTANT Historical Provider LAB HISTORICAL ORDERS Performing Organization Address City/State/ZIP Code Phon e Number [facility] Influenza A/B (06/06/2012 2:24 PM BI CONSULTANT) Patholo gist Method Time Signature Influenza A/B Nasopharyngeal [facility] Ag Spec [facility] Specimen (Source) Anatomical Collection Method Collection Time Re ceived Time Location / / Volume Laterality 06/06/2012 2:24 PM BI CONSULTANT Historical Provider LAB MICROBIOLOGY - GENERAL O RDERABLES Performing Organization Address City/State/ZIP Code Phon e Number [facility] HX INFLUENZA B AG (06/06/2012 2:24 PM BI CONSULTANT) Patholo gist Method Time Signature HXInfluenza B Ag Negative [facility] Specimen (Source) Anatomical Collection Method Collection Time Re ceived Time Location / / Volume Laterality 06/06/2012 2:24 PM BI CONSULTANT Historical Provider LAB HISTORICAL ORDERS Performing Organization Address City/State/ZIP Code Phon e Number [facility] Influenza A H1N1 (2009) (06/06/2012 2:24 PM BI CONSULTANT) Patholo gist Method Time Signature HXInfluenza A Ag Positive [facility] Specimen (Source) Anatomical Collection Method Collection Time Re ceived Time Location / / Volume Laterality 06/06/2012 2:24 PM BI CONSULTANT Historical Provider LAB MICROBIOLOGY - GENERAL O RDERABLES Performing Organization Address City/State/ZIP Code Phon e Number [facility] HX CULTURE REPORT STATUS (06/06/2012 2:15 PM BI CONSULTANT) Analysis Performed At Patho logist Time Signature CULTURE REPORT FINAL [facility] STATUS 06/06/2012 [facility] Specimen (Source) Anatomical Collection Method Collection Time Re ceived Time Location / / Volume Laterality 06/06/2012 2:15 PM BI CONSULTANT Historical Provider LAB HISTORICAL ORDERS Performing Organization Address City/[facility]/ZIP Code Phon e Number [facility] Rapid Strep A Screen (06/06/2012 2:15 PM BI CONSULTANT) Specimen (Source) Anatomical Collection Method Collection Time Re ceived Time Location / / Volume Laterality 06/06/2012 2:15 PM BI CONSULTANT Narrative [facility] - 07/31/19 14 9:49 PM BI CONSULTANT NEGATIVE: No Group A streptococcal antigen detected by immunoassay, await culture report. Historical Provider LAB MICROBIOLOGY - GENERAL O RDERABLES Performing Organization Address City/[facility]/ZIP Code Phon e Number [facility] HX SN - SPEC - DESCRIPTION (06/06/2012 2:15 PM BI CONSULTANT) P athologist Signature HXSPECIMAN Throat [facility] Specimen (Source) Anatomical Collection Method Collection Time Re ceived Time Location / / Volume Laterality 06/06/2012 2:15 PM BI CONSULTANT Historical Provider LAB HISTORICAL ORDERS Performing Organization Address City/[facility]/ZIP Code Phon e Number [facility] documented in this encounter Visit Diagnoses Not on filedocumented in this encounter
--- OUTSIDE RECORDS SUMMARY | 2022-01-21 11:01 | XMS_ITS | Encounter Summary ---
:1985 Author Organization [facility] Address [address] [place] [address] Care Team Providers Name Role Phone Unavailable Primary Care Provider Unavailable Encounter Details Date Type Department Care Team Description 08/24/2012 Hospital Encounter HX [facility] ME Dana Arteaga M.D. Social [...] Arteaga M.D. - 08/24/2012 11:11 AM CDT [id number] CHIEF COMPLAINT/REASON FOR VISIT This is a [...] suggested she get set up with an electrical maintenance man and it would be important to get an ultrasound within the next 2 to 4 weeks I believe for dating purposes. She does have some vitamins at home that she will start taking. Dana Arteaga M.D./renee Electronically Signed By: DANA ARTEAGA MD On: 08/24/2012 02:17 PM Source: [facility] [email or web address] Document Id: [id number] documented in this encounter Miscellaneous Notes Tishcelltamiko [...] 13:49:12 CDT ! Show up: 08/24/2012 18:49:12 [facility] Subject: Results Notification Actions: Notify patient of results Source: [facility] POWERCHART Document Id: [id number] Electronically signed by [facility] Senior Ruby Developer [id number] at 10/28/2016 11:39 AM CDT Miscellaneous - Dana Arteaga M.D. - 08/24/2012 12:20 PM CDT Results Notification Document Contains Addenda Addendum by MATY ESPARZA on 24 August 2012 15:11:32 CDT left message to call back. From: DANA ARTEAGA MD To: MATY ESPARZA Sent: 08/24/2012 12:20:08 CDT ! Show up: 08/24/2012 17:20:08 [facility] Subject: Results Notification Actions: Notify patient of results Source: [facility] POWERCHART Document Id: [id number] Dana Montes De Oca M.D. - 08/24/2012 12:17 PM CDT Ambulatory Patient Summary [address] [address] Visit Information Name: MARIA ELENA RUIZ [facility] Number: [id number] Current Date: 08/24/2012 12:17:36 Physicians [...] No Appointments found Your Goals/Additional instructions: Source: [facility] POWERCHART Document Id: [id number] Dana Montes De Oca M.D. - 08/24/2012 12:17 PM CDT Ambulatory Depart Summary [id number] [place] [address] Visit Information Name: MARIA ELENA RUIZ [facility] Number: [id number] Visit Date: 08/24/2012 12:17:36 Attending [...] your provider for clarification. Additional Information: Source: [facility] POWERCHART Document Id: [id number] Miscellaneous - Maty Esparza, L.P.N. - 08/24/2012 11:20 AM CDT Adult Meat Grading Machine Operator Intake/History Adult Meat Grading Machine Operator Intake/History Entered On: 08/24/2012 11:24 CDT Performed [...] Information Given By : Patient Languages : Slovenian ERIC ESPARZAN - 08/24/2012 11:20 CDT Subjective [...] MATY ESPARZA; Reviewed Date: 08/24/2012 11:17CDT Source: [facility] Document Id: [id number] documented in this encounter Plan of Treatment [...] (ABNORMAL) Automated Differential (08/24/2012 11:57 AM CDT) [facility] Method Time Signature Neutro % 76.6 42.0 - POWERCHART 77.0 Lymphocytes % 14.1 (L) 23.0 - POWERCHART 44.0 HX [place] % 7.0 2.0 - 18.0 POWERCHART HX [...] X109L Erythrocytes 4.33 3.90 - POWERCHART 5.03 [id number] Hemoglobin 12.6 12.0 - POWERCHART 15.5 GDL [...] POWERCHART MMOLL CO2 Total 27.1 23.0 - POWERCHART 29.0 MMOLL Glucose, 87 70 - 99 POWERCHART Fasting, S MGDL BUN (Blood Urea 12 7 - 18 POWERCHART Nitrogen), S MGDL Creatinine 0.71 0.60 - POWERCHART 1.30 MGDL Calcium, Total, 9.1 8.5 - 10.1 POWERCHART S MGDL Anion Gap 7 (L) 10 - 20 POWERCHART MMOLL HXeGFR (MDRD) >60 >=60 POWERCHART [id number] Comment: A GFR of <60 mL/min is indicative of chr onic kidney disease. (MDRD calculation valid on patients 18 - 70 years.) eGFR Black/ >60 >=60 [id number] POWERCHART Specimen (Source) Anatomical Collection Method Collection [...] Test, Qualitative, Urine (08/24/2012 11:51 AM CDT) [facility] gist Method Time Signature HXBeta-hCG Positive POWERCHART Qualitative Urine Specimen (Source) Anatomical Collection Method Collection Time Re ceived Time Location / / Volume Laterality Urine 08/24/2012 11:51 AM CDT Dana Arteaga M.D. LAB URINE ORDERABLES Performing Organization Address City/State/ZIP Code Phon e Number POWERCHART documented in this encounter Visit Diagnoses Not on filedocumented in this encounter
--- OUTSIDE RECORDS SUMMARY | 2022-01-21 11:02 | XMS_ITS | Clinical Summary ---
:1985 Author Organization [facility] Address [address] [place] [address] Care Team Providers Name Role Phone Marylou [...] Pap Smear 1985 COVID-19 Vaccine (#1) 04/14/1985 [facility] [place] Pneumococcal Vaccine: 65+ 2049 Years (1 - PCV) HPV Vaccines Aged Out No longer eligib le based on patient's age to complete this topic [facility] Pneumococcal Vaccine: <64 Aged Out No longer eligible based on patient's age to complete this topic Insurance Payer Benefit Plan / Subscriber ID Effective Dates Phone Addre ss Type Group [facility] [id number] 2019-Prese [address] [facility] [id number] Care Teams Tire Center Manager Relationship Specialty Start Date End Date Marylou Bermudez MD PCP - General Family Medicine 10/24/[address] [place] [address]
--- OUTSIDE RECORDS SUMMARY | 2022-01-21 11:02 | XMS_ITS | Encounter Summary ---
:1985 Author Organization [facility] Address [address] [place] [address] Care Team Providers Name Role Phone Marylou Bermudez MD Primary Care Provider Reason for Visit Reason Comments Procedure cyst on chin for at least a year Encounter Details Date Type Department Care Team Description 02/13/2020 Office Visit [place] Elijah Guy MD [address] [facility] [address] [place] [address] Skin nodule (Primary [address] Marylou Bermudez MD [address] [place] [address] Dx) [place] [address] Social History Tobacco Use Types Packs/Day Years [...] brief history on her She moved from [place] to [place] in 2009 and currently lives just outside of [place] with her and family. 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
--- NOTE | 2022-01-21 16:34 | P.LACCB_ITS ---
Consult Note - Mom Date of Visit Date of visit: 01/26/22 reservoir engineering consultant: Colleen Womack Visit Code: Visit Patient's Information Phone number: [phone] : 5 Para: 5 Allergies No Known Allergies Allergy (Unverified 01/13/22 15:01) Mother's Medical History: Medical History (Updated 01/21/22 @ 00:01 by ) Abnormal Pap smear of cervix (02/15/13) AMA (advanced maternal age) multigravida 35+ Anemia (02/15/13) Fracture of nasal bone GBS (group B Streptococcus carrier), +RV culture, currently Gestational diabetes (02/15/13) Hypothyroidism (02/15/13) Depression Work Plans: undecided Delivery Information Delivery type: Vaginal Weeks Gestation: 39.4 Gestational Age: AGA Weight: 3.795 kg Discharge Weight: 3.723 kg Baby's Information Baby's Age at Visit: 6 days old Baby's Provider or Clinic: Dr. English Jaundice: No Reason for Consult Reason for Consult: slow weight gain, concern for milk transfer Past Experience Past Experience: Yes (nursed her 4 older kids x a few mo., d/t supply issues switched to formula) Current Frequency of Day Feedings: cluster feeding Frequency of Night Feedings: every 2 - 4 hours Both Breasts: Yes Suck: not very aggressive Latch: fairly wide Length of Time: 15 - 20 minutes total Goals: as long as possible Pumping Pumping: Yes (only a few times) Quantity Pumped: 3 oz total Supplementing EMB Supplement: Yes (once last night b/c baby wouldn't wake to nurse) Formula Supplement: No Baby Elimination Number of Wet Diapers a Day: 3 - 4 Number of BM a Day: 3 - 4; greenish yellow, seedy Breast/Nipple Condition Breast Information: WNL Engorgement: No Maternal Nipple Condition - Left: Common Nipple Maternal Nipple Condition - Right: Common Nipple Sore Nipples: Yes Onsite Pre-Feed weight: 3.572 kg Post-Feed weight: 3.662 kg Milk Transferred (mL): 90 Pre-Nursing Left Nipple: Within Normal Limits Pre-Nursing Right Nipple: Within Normal Limits Post-Nursing Left Nipple: Within Normal Limits Post-Nursing Right Nipple: Within Normal Limits Assessments/Interventions Assessments/Interventions: Met with mom and this now 6 day old ex- term AGA baby for consult.? Mom reports baby was seen for her NB visit on 01/19 and hadn't started to gain weight yet, was 8% below BW.? She reports baby cluster feeds during the day and is hard to wake at night but will attempt to nurse her every 2 - 3 hours.? Mom offers both sides but states baby doesn't really nutritively suckle and her breasts still feels full when baby has finished.? She's pumped a few times since D/C and has gotten 3 oz total each time.? She supplemented baby with 1.5 ml EBM last night b/c she couldn't get her to wake up enough to nurse.? Breasts WNL- symmetrical with rounded lower quadrants.? Nipples are everted and don't flatten or retract with compression; no damage noted. Baby has gained 36 grams/day since her last visit on 01/19 and is now 6% below BW.? Per mom she had a fast delivery (water ) and there was no caput/cephalohematoma, bruising, or shoulder dystocia.? She reports baby has equal ROM when turning her head and moving her extremities.? Baby's upper lip is a little difficult to flange, her palate is WNL.? She has a fairly strong suck on a finger; her tongue doesn't extend past the gum line, but has good lateral movement.? Her lower frenulum is WNL. Mom latched baby in the cross cradle hold on the left side and although the latch looked fairly wide, mom stated it was a little pinchy (she said it's worse when her breasts are full).? She reported relief when baby's lower lip was flanged.? Baby was not aggressive at the breast and needed a lot of stimulation to stay awake.? After 15 - 20 minutes she was weighed and had transferred 45 ml.? Mom then put her on the right and baby had a shallower latch so mom practiced flanging baby's lower lip and reported increased comfort.? Baby was a little more aggressive on this side, but still needed a lot of stimulation to stay awake.? After another 15 - 20 minutes she was weighed and had transferred another 45 ml (total 90 ml). Plan: 1. Encouraged mom to continue nursing every 2 - 3 hours around the clock, offering both sides.? Suggested she either hand express a little milk to soften the breasts as this may help baby to get a deeper initial latch, or practice turning baby's lip down once she's on the breast.? 2. Pump after nursing only to comfort if needed. 3. No need to supplement unless she can't wake baby after a 4 hour stretch. 4. Mom was given a handout on a tongue exercise she could try to help baby extend her tongue past the gum line as this may also help make nursing more comfortable. 5. Will f/u with Dr. English for a 2 week C and in for a one month weight check. Meds Home Medications and Allergies Home Medications Medication Instructions Recorded Confirmed Type PNV no.151-iron 27 mg-folic 800 cap PO QDAY 11/25/21 01/13/22 History mcg-omega3 260 nh-njx-ahq-fish capsule ( Multi-DHA (with vitamin K)) bupropion HCl 150 mg 24 hr tablet, 150 mg PO QAM 11/25/21 01/13/22 History extended release (Wellbutrin XL) clobetasol propionate 0.05 % topical .hs PRN 11/25/21 01/13/22 History Allergies Allergy/AdvReac Type Severity Reaction Status Date / Time No Known Allergies Allergy Unverified 01/13/22 15:01
== END 2022-01-21 11:00 | disposition home or self-care (01) ==
PROVIDERS: Visit Provider Advanced Practice Midwife
DX: Z39.1 Encounter for care and examination of lactating mother (principal)
CPT/HCPCS: 99211

== ENCOUNTER 2023-07-12 07:47 | Day surgery (SDC) | payer OTHER, SELFPAY ==
[2023-07-12] MEDS: BUPIVACAINE 0.5% 30 ML INJECTION (07:02)
[2023-07-12] MEDS: LACTATED RINGERS 1000 ML 1,000 ML 100 ML IV (07:05)
[2023-07-12 07:58] VITALS: BMI 24.0
--- OUTSIDE RECORDS SUMMARY | 2023-07-12 08:01 | XMS_ITS | Clinical Summary ---
Author Name Unknown Organization [facility] er Address [address] [place] [address] Care Team Providers Care Comb Machine Operator Name Role Phone Sabrina Luke APRN Primary Care Provider Allergies No known active allergies Medications Medication Sig Dispensed Refills Start Date End Date Status clobetasol (TEMOVATE) 0.05 % cream Apply 1 application topically 2 (two) times a day 0 Active Synthroid 50 MCG tabletIndications: Hypothyroidism, unspecified type Take one pill daily for thyroid 90 tablet 3 08/17/2022 Active buPROPion XL (Wellbutrin XL) 150 MG 24 hr tabletIndications: Depression, unspecified depression type Take 1 tablet (150 mg total) by mouth 1 (one) time each day in the morning Do not crush, chew, or split. 90 tablet 3 09/17/2022 09/17/2023 Active Active Problems Problem Noted Date Diagnosed Date Anxiety 08/14/2022 Recurrent major depressive disorder, in partial remission 08/14/2022 Other specified hypothyroidism 08/14/2022 Resolved Problems Problem Noted Date Diagnosed Date Resolved Date Fracture of nasal bone 08/14/202208/14 Rosacea 08/14/2022 08/14/2022 Depression 02/15/2013 08/14/2022 Immunizations Name Administration Dates Next Due Td 11/29/2008 Tdap 07/03/2014 Family History Relation Status Comments Brother 1 Alive Brother 2 Father Alive Mother Alive Sister Alive Social History Tobacco Use Types Packs/Day Years Used Date Smoking Tobacco: Never Smokeless Tobacco: Current Chew Tobacco Cessation:Ready to Q uit: Not Asked; Counseling Given: Not Answered Alcohol Use Standard Drinks/Week Comments Yes 0 (1 standard drink = 0.6 oz pur e alcohol) 1 PHQ-2 Answer Date Recorded PHQ-9 Total Score 8 08/11/2022 Sex and Gender Information Value Date Recorded Sex Assigned at Female 08/11/2022 3:11 PM CDT Gender Identity Female 08/11/2022 3:11 PM CDT Sexual Orientation Not on file Last Filed Vital Signs Vital Sign Reading Time Taken Comments Blood Pressure 110/64 08/13/2022 1:10 PM CDT Pulse 58 08/13/2022 1:10 PM CDT Temperature 36.9 ??C (98.5 ??F) 08/13/2022 1:10 PM CD T Respiratory Rate 16 08/13/2022 1:10 PM CDT Oxygen Saturation - - Inhaled Oxygen Concentration - - Weight 60.8 kg (134 lb 1.6 oz) 08/13/2022 1:10 P M CDT Height 162.6 cm (5' 4) 02/13/2020 3:41 PM CDT Body Mass Index 23.02 02/13/2020 3:41 PM CDT Plan of Treatment Health Maintenance Due Date Last Done Comments Pap Smear 1985 COVID-19 Vaccine (#1) 04/14/1985 Influenza Vaccine (#1) 2023 DTaP,Tdap,and Td Vaccines (3 - Td or Tdap) 02/15/2030 02/16/2020, 07/03/2014, 11/29/2008 HPV Vaccines Aged Out No longer eligi ble based on patient's age to complete this topic Pneumococcal Vaccine: Pediatrics (0 to 5 Years) and At-Risk Patients (6 to 64 Years) Aged Out No longer eligible b ased on patient's age to complete this topic Care Teams Comb Machine Operator Relationship Specialty Start Date End Date Sabrina Luke APRN [address] [place] [phone] (work) PCP - General 03/18/23
--- OUTSIDE RECORDS SUMMARY | 2023-07-12 08:01 | XMS_ITS | Encounter Summary ---
Author Name Unknown Organization [facility] er Address [address] [place] [address] Care Team Providers Care Marketing Graphics Specialist Name Role Phone Marylou Bermudez MD Primary Care Provider [phone] Encounter Details Date Type Department Care Team (Late st Contact Info) Description 08/17/2022 Telephone [place] [address] [place] [address] Marylou Bermudez MD [address] [facility] [address] [place] [address] Social History Tobacco Use Types Packs/Day Years Used Date Smoking Tobacco: Never Smokeless Tobacco: Current Chew Alcohol Use Standard Drinks/Week Comments Yes 0 (1 standard drink = 0.6 oz pur e alcohol) 1 PHQ-2 Answer Date Recorded PHQ-9 Total Score 8 08/11/2022 Sex and Gender Information Value Date Recorded Sex Assigned at Female 08/11/2022 3:11 PM CDT Gender Identity Female 08/11/2022 3:11 PM CDT Sexual Orientation Not on file documented as of this encounter Miscellaneous Notes * Telephone Encounter - Mojgan Wilcox RN - 08/17/2022 11:29 AM CDT Patient contacted and states understanding. Nurse encouraged a call to clinic to let us know how venlafaxine is working so it can be slowly titrated up if/when needed. * Telephone Encounter - Marylou Bermudez MD - 08/17/2022 10:07 AM CDT Let Elaine know that I sent to [facility] for her thyroid medication without any changes just take 1 a day. We also sent a prescription for Effexor also known as venlafaxine small dose 37.50 1 pill twice a day. She was given 60 pills with a couple of refills. We should reassess how she is doing in roughly 4 to 6 weeks. Remind her that we start at a low dose and slowly titrate up to help avoid side effects. * Telephone Encounter - Mojgan Wilcox RN - 08/17/2022 9:40 AM CDT Letter mailed after discussing contents with nurse. * Telephone Encounter - Mojgan Wilcox RN - 08/17/2022 9:37 AM CDT Spoke with patient who states she is willing to start the venlafaxine. She also states needing thyroid medication as almost out. Please advise and send medications to [facility] in [place]. documented in this encounter Plan of Treatment Not on file documented as of this encounter Visit Diagnoses Diagnosis Hypothyroidism, unspecified type- Primary Depression, unspecified depression type documented in this encounter Care Teams Marketing Graphics Specialist Relationship Specialty Start Date End Date Marylou Bermudez MD [address] [place] [address] PCP - General Family Medicine 10/24/19 03/17/23 documented as of this encounter
--- OUTSIDE RECORDS SUMMARY | 2023-07-12 08:01 | XMS_ITS | Clinical Summary ---
Author Name Unknown Organization [facility] Address [place], [place] [address] Care Team Providers Care Laundry Tech Name Role Phone Unavailable Primary Care Provider Unavailabl e Allergies No known active allergies Medications Medication Sig Dispensed Refills Start Date End Date Status Synthroid 50 mcg tablet 0 10/14/2022 Active buPROPion (WELLBUTRIN XL) 150 mg Extended-Release tablet Take 150 mg by mouth. 0 09/17/2022 09/17/2023 Active Immunizations Name Administration Dates Next Due Td (Age >=7 Years) 11/29/2008 Tdap 02/16/2020,07/03/2014 Social History Tobacco Use Types Packs/Day Years Used Date Smoking Tobacco: Never Smokeless Tobacco: Never Tobacco Cessation:Counseling Given: Not Answered Alcohol Use Standard Drinks/Week Comments Not Currently 0 (1 standard drink = 0.6 oz pur e alcohol) Social Connections Answer Date Recorded Frequency of Communication with Friends and Fami ly Not on file 10/21/2022 Sex and Gender Information Value Date Recorded Sex Assigned at Not on file Gender Identity Not on file Sexual Orientation Not on file Obstetrics History Last Filed Vital Signs Vital Sign Reading Time Taken Comments Blood Pressure 104/69 10/21/2022 8:30 AM CDT Pulse 87 10/21/2022 8:30 AM CDT Temperature - - Respiratory Rate - - Oxygen Saturation 100% 10/21/2022 8:30 AM CDT Inhaled Oxygen Concentration - - Weight 61.2 kg (135 lb) 10/21/2022 8:30 AM CDT Height - - Body Mass Index - - Plan of Treatment Health Maintenance Due Date Last Done Comments COVID-19 vaccine series (#1) 04/14/1985 Depression screening for age 12+ 1996 HIV for age 15-65 10/13/1999 BMI (ht and wt on same day) for age 18+ 2002 Hepatitis C screening for age 18-79 2002 Influenza for age 9-49 01/29/2023 Pap test for age 21-65 02/20/2024 , 02/19/2021, 02/11/2017, Additional history exists Tetanus booster 02/15/2030 02/16/2020, 0207/2014, 11/29/2008 Tdap Completed 02/16/2020, 07/03/2014 Pneumococcal series for age 6-64 Aged Out No longer eligible based on patient's age to complete this topic
--- OUTSIDE RECORDS SUMMARY | 2023-07-12 08:01 | XMS_ITS | Encounter Summary ---
Author Name Unknown Organization [facility] er Address [address] [place] [address] Care Team Providers Care Major Account Manager Name Role Phone Marylou Bermudez MD Primary Care Provider [phone] Reason for Visit * Reason Comments Fatigue Gaining weight Encounter Details Date Type Department Care Team (Late st Contact Info) Description 08/13/2022 1:20 PM CDT Office Visit [employer] [address] [address] Marylou Bermudez MD [address] [place] [phone] Other fatigue (Primary Dx); Hypothyroidism, unspecified type Social History Tobacco Use Types Packs/Day Years [...] oz) 08/13/2022 1:10 P M CDT Height - - Body Mass Index 23.02 02/13/2020 3:41 PM CDT documented in this encounter Progress Notes * Marylou Bermudez MD - 08/13/2022 1:20 PM CDT Subjective Patient ID: Elaine Watts is a 36 y.o. female. HPI the patient is here today because of concerns for increased fatigue and tiredness and increase sleeping. We have seen the patient on 1 prior occasion about 2 years ago when I removed a nodule from her chin. In brief she is a 36-year-old individual who moved from [place] to [place] in 2009 and had been living with her just outside of [employer]. Unfortunately she and her are now . She has a total of 5 children ages 18, 15, 11, 7, and one 8-month-old. 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 I believe her is still involved in the children as well as childcare monetary support. DEPRESSION/ANXIETY the patient has a history of depression and she has been on medications previously. Her last 1 was Wellbutrin 75 mg once daily seem to be of some benefit but at higher doses she had some side effects. She has also been on SSRI medications in the form of Celexa and Zoloft and theywere of no significant benefit. HYPOTHYROIDISM patient states that she has been on thyroid medication for a number of years. She has previous TSH values going back the last couple of years and her numbers have been between 1.8 up to 5.2. However she is not sure what her highest value of TSH was not certain that she ever had TPO antibodies tested. It should be noted that my dictated notes from 2+ years ago indicated that her only medication at that time was Wellbutrin and no thyroid medication. Again probably been on thyroid medication for less than 2 years or so. She says she has been off medication periodically. ANEMIA she states that her hemoglobin has been as low as 9.6 I believe that she does take a multivitamin with iron. CURRENT SYMPTOMS again she states that she has had a loss of energy and increased fatigue increasedtiredness for the last several months. She says that she does not feel depressed necessarily does not feel necessarily that anxious necessarily she sleeps pretty much through the night getting up once occasionally twice because of her 8-month-old daughter needing cares. Once her kids are off to school in the morning she says that she tends to nap frequently throughout the day when her [id number] takes her naps. She has had no fevers no chills no SOB/chest pain no change of appetite she says she has not lost any particular weight she is not nauseous or throwing up no constipation no diarrhea no blood in her stool her menstrual cycles in the last couple of months have been regular. No unusual symptoms of urination issues no skin lesions fluid retention no joint pain joint swelling. No abdominal pain. Again no unusual headaches. No skin rashes She just feels tired and needs to sleep a lot of the time. It should be noted that she does not feel as far as she can recall that she has had COVID 19 or other illnesses recently Review of Systems see history and physical Objective Physical Exam she is alert she appears comfortable answers questions appropriately. Blood pressure 110/64 Pulse 60 regular rate and rhythm Temp 98.5 Weight 134 pounds O2 sats 96% Pupils equal conjunctiva clear Tongue is moist Neck no adenopathy no thyromegaly no masses Lungs are clear without wheeze rales or rhonchi Cardiac is regular rate and rhythm without heart murmur Abdomen soft not tender no hepatosplenomegaly no masses no hernias Extremities without edema no apparent skin changes. LABORATORY TESTING We will get a CBC, chemistry panel, liver function testing, TSH, free T4, TPO level. Assessment/Plan Diagnoses and all orders for this visit: Other fatigue - CBC Branch Off w/Diff; Future - Basic metabolic panel; Future - TSH; Future - T4, free; Future - Thyroperoxidase (TPO) Ab; Future - Liver panel; Future Hypothyroidism, unspecified type - TSH; Future - T4, free; Future - Thyroperoxidase (TPO) Ab; Future The assessment is fatigue and general tiredness etiology in question therefore we will do routine lab tests. If lab test do not help change the diagnosis consideration for antidepressant therapy eventhough the patient says she does not feel depressed is possible her excessive tiredness is from depression considering the recent delivery of her fifth child her family cares and current separation between she and her . documented in this encounter Plan of Treatment Not on file documented as of this encounter Results * Liver panel (08/13/2022 1:57 PM CDT) Total Protein 7.7 6.3 - 8.2 g/dL 08/14/2022 1:58 PM CDT [facility] Albumin, Serum 4.4 3.5 - 5.0 g/dL 08/14/2022 1:58 PM CDT [facility] Total Bilirubin <0.7 0.1 - 1.0 mg/dL 08/14/2022 1:58 PM CDT [facility] Bilirubin, Direct <0.1 0.0 - 0.3 mg/dL 08/14/2022 1:58 PM CDT [facility] AST 26 8 - 43 U/L 08/14/2022 1:58 PM CDT [facility] Alkaline Phosphatase 55 38 - 128 U/L 08/14/2022 1:58 PM CDT [facility] ALT (SGPT) 21 0 - 34 U/L 08/14/2022 1:58 PM CDT [facility] Blood 08/13/2022 1:57 PM CDT 08/14/2022 12:15 PM CDT Marylou Bermudez MD LAB BLOOD ORDERABLES [facility] [address] [place] [address] * (ABNORMAL) Thyroperoxidase (TPO) Ab (08/13/2022 1:57 PM CDT) Thyroid Peroxidase (TPO) Ab 18.7(H) <9.0 IU/mL 08/15/2022 10:37 AM CDT [facility] Comment: Test Performed by: [facility] - [address] [address] Fiber Optic Assembly Worker: Rohit Borges M.D. Ph.D.; CLIA# [id number] Blood (Blood, Venous) 08/13/2022 1:57 PM CDT 08/14/2022 1:24 PM CDT Marylou Bermudez MD LAB BLOOD ORDERABLES [facility] see result attachment for specific address * T4, free (08/13/2022 1:57 PM CDT) Free T4 1.04 0.78 - 2.19 ng/dL 08/14/2022 2:27 PM CDT [facility] Comment: The results from this or any other diagnostic test should be used and interpreted only in the context of the overall clinical picture. Heterophilic antibodies in serum or plasma samples may cause interference in immunoassays. ??Exposure to animal antigens, either in the environment or as part of treatment or imaging procedures, may have circulating anti-animal antibodies present. These antibodies may interfere with the assay reagents to produce unreliable results. ??Results which are inconsistent with clinical observations indicate the need for additional testing. Blood (Blood, Venous) 08/13/2022 1:57 PM CDT 08/14/2022 12:42 PM CDT Marylou Bermudez MD LAB BLOOD ORDERABLES Performing Organization Address City/[facility]/ZIP Co de Phone Number [facility] [address] [place] [address] * TSH (08/13/2022 1:57 PM CDT) Pathologist [facility] TSH, Sensitive 2.92 0.46 - 4.68 mIU/L 08/14/2022 2:27 PM CDT [facility] Comment: The results from this or any other diagnostic test should be used and interpreted only in the context of the overall clinical picture. Biotin levels in serum remain elevated for up to 24 hours after oral or intravenous biotin administration and may interfere with this assay to produce unreliable results. Heterophilic antibodies in serum or plasma samples may cause interference in immunoassays. ??Exposure to animal antigens, either in the environment or as part of treatment or imaging procedures, may have circulating anti-animal antibodies present. These antibodies may interfere with the assay reagents to produce unreliable results. ??Results which are inconsistent with clinical observations indicate the need for additional testing. Blood 08/13/2022 1:57 PM CDT 08/14/2022 12:42 PM CDT Marylou Bermudez MD LAB BLOOD ORDERABLES [facility] [address] [place] [address] * (ABNORMAL) Basic metabolic panel (08/13/2022 1:57 PM CDT) Sodium 142 135 - 145 mmol/L 08/13/2022 2:20 PM CDT [facility] Potassium 4.7 3.5 - 5.1 mmol/L 08/13/2022 2:20 PM CDT [facility] Comment: . Chloride 107 98 - 107 mmol/L 08/13/2022 2:20 PM CDT [facility] [place] [place] Comment: . CO2 29 22 - 29 mmol/L 08/13/2022 2:20 PM CDT [facility] Comment: . Creatinine 0.8 0.4 - 1.2 mg/dL 08/13/2022 2:20 PM CDT [facility] [place] Comment: . BUN 13 5 - 25 mg/dL 08/13/2022 2:20 PM CDT [facility] Comment: . Glucose 93 70 - 100 mg/dL 08/13/2022 2:20 PM CDT [facility] Calcium, Total,S 10.3(H) 8.4 - 10.2 mg/dL 08/13/2022 2:20 PM CDT [facility] Comment: . Fasting? Yes 08/13/2022 2:20 PM CDT [facility] Blood 08/13/2022 1:57 PM CDT 08/13/2022 1:57 PM CDT Marylou Bermudez MD LAB BLOOD ORDERABLES [facility] [address] [place] [address] * (ABNORMAL) CBC Branch Off w/Diff (08/13/2022 1:57 PM CDT) WBC 6.2 3.5 - 10.5 K/uL 08/13/2022 2:16 PM CDT [facility] RBC 4.45 3.90 - 5.00 M/uL 08/13/2022 2:16 PM CDT [facility] Hemoglobin 12.6 12.0 - 15.5 g/dL 08/13/2022 2:16 PM CDT [facility] Hematocrit 39.5 35.0 - 44.0 % 08/13/2022 2:16 PM CDT [facility] Platelets 166 150 - 450 K/uL 08/13/2022 2:16 PM CDT [facility] Comment: Interpret results with caution. Confirmation required due to analyzer flag. Sample referred to hospital lab for confirmation. MCV 88.8 81.6 - 98.3 fL 08/13/2022 2:16 PM CDT [facility] MCH 28.3 26.0 - 32.0 pg 08/13/2022 2:16 PM CDT [facility] MCHC 31.9(L) 32.0 - 36.0 g/dL 08/13/2022 2:16 PM CDT [facility] RDW 14.2 11.9 - 15.5 % 08/13/2022 2:16 PM CDT [facility] Lymphocytes % 28.9 % 08/13/2022 2:16 PM CDT [facility] Mid-size Cells 6.7 % 08/13/2022 2:16 PM CDT [facility] Granulocytes/Neut rophils 64.4 % 08/13/2022 2:16 PM CDT [facility] Lymphocytes Absolute 1.8 0.9 - 2.9 K/uL 08/13/2022 2:16 PM CDT [facility] MIDS Absolute 0.4 0.4 - 1.5 K/uL 08/13/2022 2:16 PM CDT [facility] Granulocytes/Neut rophils Absolute 4.0 1.7 - 7.0 K/uL 08/13/2022 2:16 PM CDT [facility] Blood (Blood, Venous) 08/13/2022 1:57 PM CDT 08/13/2022 1:57 PM CDT Marylou Bermudez MD LAB BLOOD ORDERABLES Performing Organization Address City/State/[facility] Co de Phone Number [facility] [address] [place] [address] documented in this encounter Visit Diagnoses Diagnosis Other fatigue- Primary Hypothyroidism, unspecified type documented in this encounter Care Teams Major Account Manager Relationship Specialty Start Date End Date Marylou Bermudez MD [address] [place] [address] PCP - General Family Medicine 10/24/19 03/17/23 documented as of this encounter
--- OUTSIDE RECORDS SUMMARY | 2023-07-12 08:01 | XMS_ITS | Encounter Summary ---
Author Name Unknown Organization [facility] er Address [address] [place] [address] Care Team Providers Care Scrubbing Machine Operator Name Role Phone Marylou Bermudez MD Primary Care Provider + [phone] Encounter Details Date Type Department Care Team (Late st Contact Info) Description 08/13/2022 2:30 PM CDT Lab [place] [address] [facility] [address] [place] [address] Other fatigue; Hypothyroidism, unspecified type Social History Tobacco Use [...] on file documented as of this encounter Procedures Procedure Name Priority Date/Time Associated Diagnosis Comments ESTIMATED GLOMERULAR FILTRATION RATE (EGFR) Routine 08/13/2022 1:57 PM CDT Other fatigue MORPHOLOGY Routine 08/13/2022 1:57 PM CDT THYROPEROXIDASE (TPO) AB Routine 08/13/2022 1:57 PM CDT Other fatigue Hypothyroidism, unspecified type CBC BRANCH OFFICE W/DIFF Routine 08/13/2022 1:57 PM CDT Other fatigue TSH Routine 08/13/2022 1:57 PM CDT Other fatigue Hypothyroidism, unspecified type T4, FREE Routine 08/13/2022 1:57 PM CDT Other fatigue Hypothyroidism, unspecified type HEPATIC FUNCTION PANEL Routine 1:57 PM CDT Other fatigue BASIC METABOLIC PANEL Routine 08/13/2022 1:57 PM CDT Other fatigue documented in this encounter Results * Estimated Glomerular Filtration Rate (eGFR) (08/13/2022 1:57 PM CDT) Estimated Glomerular Filtration Rate (eGFR) >60 08/13/2022 2:20 PM CDT [facility] Comment: GFR calculated from serum creatinine value Chronic Kidney Disease less than 60 mL/min/1.73 m2 Kidney Failure less than 15 mL/min/1.73 m2 Note: effective 05/27/2022: 2020 CKD-EPI Equation used 08/13/2022 1:57 PM CDT 08/13/2022 1:57 PM CDT Marylou Bermudez MD LAB BLOOD ORDERABLES Performing Organization Address City/[facility]/ZIP Co de Phone Number [facility] [address] [place] [phone] * Morphology (08/13/2022 1:57 PM CDT) Slide Review PERFORMED 08/14/2022 2:21 PM CDT [facility] RBC Morphology NORMAL 08/14/2022 2:21 PM CDT [facility] PLT Morphology LARGE- PRESENT 08/14/2022 2:21 PM CDT [facility] 08/13/2022 1:57 PM CDT 08/14/2022 12:15 PM CDT Marylou Bermudez MD LAB BODY FLUIDS AND STOOLS ORDERABLES Performing Organization Address City/[facility]/ZIP Co de Phone Number [facility] [address] [place] [phone] * (ABNORMAL) CBC Branch Off w/Diff (08/13/2022 1:57 PM CDT) WBC 6.2 3.5 - 10.5 K/uL 08/13/2022 2:16 PM CDT [facility] RBC 4.45 3.90 - 5.00 M/uL [...] - 7.0 K/uL 08/13/2022 2:16 PM CDT [facility] Blood (Blood, Venous) 08/13/2022 1:57 PM CDT 08/13/2022 1:57 PM CDT Marylou Bermudez MD LAB BLOOD ORDERABLES [facility] [address] [place] [address] * (ABNORMAL) Basic metabolic panel (08/13/2022 1:57 PM CDT) Pathologist [facility] Sodium 142 135 - 145 mmol/L 08/13/2022 2:20 PM CDT [facility] Potassium 4.7 3.5 - 5.1 mmol/L 08/13/2022 2:20 PM CDT [facility] Comment: . Chloride 107 98 - 107 mmol/L 08/13/2022 2:20 PM CDT [facility] Comment: . CO2 29 22 - 29 mmol/L 08/13/2022 2:20 PM CDT [facility] Comment: . Creatinine 0.8 0.4 - 1.2 mg/dL 08/13/2022 2:20 PM CDT [facility] Comment: . BUN 13 5 - 25 mg/dL 08/13/2022 2:20 PM CDT [facility] Comment: . Glucose 93 70 - 100 mg/dL 08/13/2022 2:20 PM CDT [facility] Calcium, Total,S 10.3(H) 8.4 - 10.2 mg/dL 08/13/2022 2:20 PM CDT [facility] Comment: . Fasting? Yes 08/13/2022 2:20 PM CDT [facility] Blood 08/13/2022 1:57 PM CDT 08/13/2022 1:57 PM CDT Marylou Bermudez MD LAB BLOOD ORDERABLES [facility] [address] [place] [address] * TSH (08/13/2022 1:57 PM CDT) TSH, Sensitive 2.92 0.46 - 4.68 mIU/L 08/14/2022 2:27 PM CDT [facility] Comment: The results from this [...] MD LAB BLOOD ORDERABLES Performing Organization Address [facility] Co de Phone Number [facility] [address] [place] [address] * T4, free (08/13/2022 1:57 PM CDT) Pathologist [facility] Free T4 1.04 0.78 - 2.19 ng/dL 08/14/2022 2:27 PM CDT [facility] Comment: The results from this [...] CDT Marylou Bermudez MD LAB BLOOD ORDERABLES [facility] [address] [place] [address] * (ABNORMAL) Thyroperoxidase (TPO) Ab (08/13/2022 1:57 PM CDT) Thyroid Peroxidase (TPO) Ab 18.7(H) <9.0 IU/mL 08/15/2022 10:37 AM CDT [facility] Comment: Test Performed by: [facility] [address] [place] [address] Stationary Engineer Apprentice: Rohit Borges M.D. Ph.D.; CLIA# [id number] Blood (Blood, Venous) 08/13/2022 1:57 PM CDT 08/14/2022 1:24 PM CDT Marylou Bermudez MD LAB BLOOD ORDERABLES [facility] see result attachment for specific address * Liver panel (08/13/2022 1:57 PM CDT) Total Protein 7.7 6.3 - 8.2 g/dL 08/14/2022 1:58 PM CDT [facility] Albumin, Serum 4.4 3.5 - 5.0 g/dL 08/14/2022 1:58 PM CDT [facility] Total Bilirubin <0.7 0.1 - 1.0 mg/dL 08/14/2022 1:58 PM CDT [facility] Bilirubin, Direct <0.1 0.0 - 0.3 mg/dL 08/14/2022 1:58 PM CDT [facility] AST 26 8 - 43 U/L 08/14/2022 1:58 PM CDT [facility] Alkaline Phosphatase 55 38 - 128 U/L 08/14/2022 1:58 PM CDT [facility] ALT (SGPT) 21 0 - 34 U/L 08/14/2022 1:58 PM CDT [facility] Blood 08/13/2022 1:57 PM CDT 08/14/2022 12:15 PM CDT Marylou Bermudez MD LAB BLOOD ORDERABLES [facility] [address] [place] [address] documented in this encounter Visit Diagnoses Diagnosis Other fatigue Hypothyroidism, unspecified type documented in this encounter Care Teams Scrubbing Machine Operator Relationship Specialty Start Date End Date Marylou Bermudez MD [address] [address] PCP - General Family Medicine 10/24/19 03/17/23 documented as of this encounter
--- OUTSIDE RECORDS SUMMARY | 2023-07-12 08:01 | XMS_ITS | Encounter Summary ---
Author Name Unknown Organization [facility] er Address [address] [place] [address] Care Team Providers Care Turnstile Attendant Name Role Phone Marylou Bermudez MD Primary Care Provider + [phone] Encounter Details Date Type Department Care Team (Late st Contact Info) Description 09/17/2022 Orders Only [place] [address] [place] [address] Marylou Bermudez MD [address] [phone] Depression, unspecified depression type (Primary Dx) Social History Tobacco Use Types Packs/Day Years [...] as of this encounter Visit Diagnoses Diagnosis Depression, unspecified depression type- Primary documented in this encounter Care Teams Turnstile Attendant Relationship Specialty Start Date End Date Marylou Bermudez MD [address] [facility] [address] [place] [address] PCP - General Family Medicine 10/24/19 03/17/23 documented as of this encounter
--- NOTE | 2023-07-12 08:05 | W.PM.H&PU ---
History & Physical Update History & Physical Update H&P Reviewed and patient assessed: No changes noted
--- NOTE | 2023-07-12 08:12 | SUR.PREOP ---
TIME?OUT:?0810 PT/RN/MDA?VERIFICATION?OF?SURGICAL?SITE,?PROCEDURE,?AND?CONSENT OBTAINED?PRIOR?TO?INVASIVE?PROCEDURE.right ring finger Dr. Shravan emrcer rn
[2023-07-12 08:13] LABS: Ur HCG Qualitative* Negative (Negative)
[2023-07-12 08:16] VITALS: BP 103/68; PULSE 65; RESP 18; TEMP 37.2; O2SAT 99
[2023-07-12] MEDS: SODIUM CHLORIDE 0.9 % (FLUSH) 10 ML SYRINGE IVF (08:24)
[2023-07-12] MEDS: ETHYL CHLORIDE 1 APPLICATION 1 APPLIC TOPICAL (08:26)
[2023-07-12] MEDS: CEFAZOLIN 1 GM inj IVP (08:53)
--- NOTE | 2023-07-12 09:00 | XR_ITS ---
INDICATION: OPEN REDUCTION INTERNAL FIXATION. TECHNIQUE: 2 FLUOROSCOPIC IMAGES OF THE RIGHT RING FINGER. FLUOROSCOPIC TIME 42.8 SECONDS. COMPARISON: 07/01/2023. FINDINGS/IMPRESSION: FLUOROSCOPIC GUIDANCE FOR OPEN REDUCTION INTERNAL FIXATION OF THE FRACTURE INVOLVING THE RIGHT RING FINGER MIDDLE PHALANX.
--- NOTE | 2023-07-12 10:26 | PM.ORPRC ---
Procedure Note Date of procedure: 07/12/23 Procedure: PREOPERATIVE DIAGNOSES: 1. Right ring finger middle phalanx long oblique fracture, closed, acute, extra-articular with displacement POSTOPERATIVE DIAGNOSES: 1. Right ring finger middle phalanx long oblique fracture, closed, acute, extra-articular with displacement NAME OF OPERATION: 1. Right ring finger middle phalanx extra-articular fracture ORIF. 2. Regional block administered with 50:50 mixture 0.5% Marcaine plain and 2% lidocaine with epinephrine-10 mL total divided between median and ulnar nerve regional block at the level of the wrist. 3. 20118 - intraoperative fluoroscopy up to 1 hour. SURGEON: Román Carey MD WIRELESS TELEGRAPHER: Addi Sood PA-C - Of note, an behavioral health assistant was critical for this case to aide in patient positioning, limb manipulation, pin retraction, closure/dressing, and splinting. ANESTHESIA: Regional block administered by myself with 50:50 mixture EBL: 5 mL IMPLANTS: Synthes 1.5 mm cortical fully threaded screws (x2) via lag screw technique TOURNIQUET: 30 minutes that copy that COMPLICATIONS: None evident INDICATIONS: The patient is a pleasant, 37-year-old female who sustained a right ring finger middle phalanx fracture while wrestling with her son. They had difficulty with use and notable pain. X-rays were obtained. They revealed a fracture of the middle phalanx with shortening and mild malrotation. Given the displacement, surgery was recommended to improve the fracture alignment and stablize the fracture. PROCEDURE: Following a thorough discussion of risks, benefits, and alternatives, consent was obtained and the operative extremity was marked. The patient was brought to the operating room and placed supine on the operating table. Induction of anesthesia was achieved. Appropriate time out was performed identifying proper patient, site and procedure. 1 g IV Ancef was administered within 1 hour of incision preoperatively. The right upper extremity was prepped and draped in the appropriate sterile fashion using ChloraPrep. A regional block at the level of the wrist was performed of both the median nerve and ulnar nerve. 50:50 mixture of 0.5% Marcaine plain and 2% lidocaine with epinephrine (10 mL total) was divided between the median nerve and ulnar nerve. Median nerve was injected just ulnar to the palmaris and flutter with approximately 5 mL of the anesthetic. We then palpated the flexor carpi ulnaris tendon. Just deep to this, a 25 gauge needle was inserted for the remaining 5 mL of the anesthetic. In addition, MAC anesthetic was utilized via the anesthesia team. A lateral mid axial approach was utilized to the ring finger middle phalanx. After marking out the margin of the flexor creases on the ulnar side, sharp incision through skin and blunt dissection through subcutaneous tissue allowed identification of the deep periosteal layer. This was sharply divided at the ulnar border of the middle phalanx and elevated with a [place] elevator. The fracture was quickly encountered. Initially, I small drill holes created to allow clamp to help reduce the fracture and hold stable. Initially, in interfragmentary screw was placed distally across the fracture. Then a 2nd screw was placed more proximally through the fracture site. Excellent compression was achieved. C-arm fluoroscopic imaging was utilized to confirm proper screw length as well as fracture reduction. The tourniquet was deflated, hemostasis achieved, and thorough irrigation with normal saline completed. Closure performed with 4-0 nylon. Dressings were applied. Tube gauze with aluminum foam splint was applied. Patient was awoken from anesthesia and transferred the PACU in stable condition. PLAN: 1. Elevate operative extremity. 2. Ice, acetominphen or ibuprofen PRN. 3. Oxycodone for pain as needed. 4. Follow up with PA visit in 10-12 days. Removal of splint. Removal of sutures. Encouraged terrance taping and gentle range of motion to begin at approximately 2 weeks post surgery.
[2023-07-12 10:47] VITALS: BP 109/82; PULSE 71; RESP 18; TEMP 36.9; O2SAT 97
--- NOTE | 2023-07-12 10:47 | W.ANESCHARGE ---
Anesthesia Charges Start Date/Time Anesthesia Start Date: 07/12/23 Anesthesia Start Time: 08:34 Stop Date/Time Anesthesia Stop Date: 07/12/23 Anesthesia Stop Time: 10:46
[2023-07-12 11:00] VITALS: BP 95/67; PULSE 60; RESP 18; O2SAT 97
[2023-07-12 11:15] VITALS: BP 102/70; PULSE 64; RESP 18; TEMP 36.9; O2SAT 97
== END 2023-07-12 11:38 | disposition home or self-care (01) ==
PROVIDERS: Anesthesiology; Visit Provider Orthopaedic Surgery Sports Medicine
PROC: (CPT 26735; principal; 2023-07-12 09:00)
DX: S62.624A Displaced fracture of middle phalanx of right ring finger, initial encounter for closed fracture (principal)
CPT/HCPCS: 26735; 01830; 73140; 81025; A4580; C1713; J0665; J0690; J1100; J2405; J2704; J3010; J7120

== ENCOUNTER 2023-09-22 10:45 | Outpatient (RCR) | payer OTHER, SELFPAY ==
--- NOTE | 2023-07-27 11:35 | REH.OT ---
Pt had OT evaluation scheduled today, she called to cancel as she stepped on a nail and needed to address this.
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
== END 2023-12-03 08:54 | disposition home or self-care (01) ==
PROVIDERS: Visit Provider Physician Assistant Surgical
DX: Z98.890 Other specified postprocedural states (principal); Z51.89 Encounter for other specified aftercare
CPT/HCPCS: 97110; 97140; 97165; L3933; X5282